=== PATIENT | female | born 1970 | race Caucasian/White ===

== ENCOUNTER 2017-08-01 07:28 | Emergency (ER) | payer BC, OTHER ==
[~2017-08-01] VITALS: Ht 162.6 cm; Wt 84.8 kg
[2017-08-01 07:37] VITALS: TEMP 36.6; Ht 162.6 cm; Wt 84.8 kg
[2017-08-01] MEDS ORDERED: ONDANSETRON INJ 2 MG/ML 2 ML VIAL IV STA (07:49)
[2017-08-01] MEDS ORDERED: SODIUM CHLORIDE 0.9% 1000ML 1,000 ML IV STA (07:49)
[2017-08-01 08:06] LABS: BASO % 0.5 %; BASO ABS # 0.02 K/uL (0-0.2); EOS % 2.7 %; EOS ABS # 0.12 K/uL (0-0.5); HEMATOCRIT 41.8 % (37-47); HEMOGLOBIN 14.5 g/dL (12.0-16.0); IG# 0.01 K/uL (0.00-0.02); LYMPH % 37.4 %; LYMPH ABS # 1.64 K/uL (1.2-3.4); MEAN CELL VOLUME 88.6 fL (80-100); MEAN CORPUSCULAR HEMOGLOBIN 30.7 pg (25-34); MEAN CORPUSCULAR HGB CONC 34.7 g/dl (32-36); MEAN PLATELET VOLUME 9.8 fL (7.4-10.4); MONO % 6.8 %; NEUT % 52.4 %; PLATELET COUNT 230 K/uL (130-400); RED CELL DISTRIBUTION WIDTH CV 13.6 % (11.5-14.5); RED CELL DISTRIBUTION WIDTH SD 44.2 fL (36.4-46.3); WHITE BLOOD COUNT 4.39 K/uL (4.8-10.8)
[2017-08-01 08:18] LABS: PTT PATIENT 29.9 SECONDS (21.0-31.0)
[2017-08-01 08:22] LABS: ALBUMIN 4.3 gm/dl (3.4-5.0); ALT/SGPT 36 U/L (12-78); BLOOD UREA NITROGEN 17 mg/dl (7-18); CALCIUM 9.3 mg/dl (8.5-10.1); CARBON DIOXIDE 26 mmol/L (21-32); CREATININE 0.96 mg/dl (0.60-1.20); GLUCOSE 86 mg/dl (70-99); LIPASE 142 U/L (73-393); POTASSIUM 3.8 mmol/L (3.5-5.1); SODIUM 140 mmol/L (136-145)
[2017-08-01 08:27] LABS: ALKALINE PHOSPHATASE 75 U/L (45-117); AST/SGOT 17 U/L (15-37); TOTAL PROTEIN 8.1 gm/dl (6.4-8.2)
[2017-08-01] MEDS ORDERED: MELO7.5T5 PO (08:31)
[2017-08-01] MEDS ORDERED: OMEP20TA PO (08:32)
--- NOTE | 2017-08-01 09:37 | DIAGNOSTIC IMAGING REPORT ---
ABDOMINAL ULTRASOUND, RIGHT UPPER QUADRANT HISTORY: RUQ/right FLANK PAIN/GI. COMPARISON: None. FINDINGS: Pancreas: The pancreatic tail is obscured by overlying bowel gas. The remaining portions of the pancreas are within normal limits. Liver: The liver is echogenic consistent with fatty change. Mildly enlarged measuring 19 cm in length. Gallbladder: No gallbladder wall thickening. No gallstones. CBD: 4 mm. Right kidney: No hydronephrosis. Right adrenal gland nodule which measures 2.2 x 2.0 x 1.6 cm. IMPRESSION: 1. Mild hepatomegaly demonstrating fatty change. 2. Normal gallbladder. No gallstones. 3. A 2.2 cm indeterminate right adrenal gland nodule. Electronically signed by: Ryan Rangel M.D. 08/01/2017 9:35 AM Dictated Date/Time: 08/01/2017 9:33 AM
[2017-08-01 10:20] VITALS: BP 121/84; PULSE 65; O2SAT 98
--- NOTE | 2017-08-01 10:31 | EMERGENCY ROOM VISIT NOTE ---
History First contact with patient: 07:31 Chief Complaint: ABDOMINAL PAIN Stated Complaint: RIGHT SIDE ABDOMINAL PAIN Nursing Triage Summary: Pt presents with RUQ pain x 2 mos, worse after eating. Nausea, diarrhea. States saw PCP on Mon, was to have testing for gall bladder or ulcer next week. Unable to tolerate the pain. History of Present Illness The patient is a 47 year old female who presents to the Emergency Room with complaints of a 2 month history of right upper quadrant pain, right shoulder pain and back pain. The patient reports that her pain is significantly worsened with any type of food intake. She reports nausea without vomiting. She is also had significant belching. She reports that her stools have a yellow and/or ramirez colored appearance. She has not noticed any dark stools. The patient reports that she was seen by her PCP, Dr. Gale, who ordered imaging studies. She also was provided a prescription for a proton pump inhibitor, but did not get the prescription filled yet. She was seen by her PCP 3 days ago. She denies any pain extending into the lower abdomen. She denies any urinary symptoms. The patient also denies any recent upper respiratory illnesses, including runny nose, sore throat or cough. At the current time, she rates her discomfort a 4 out of 10 on my exam. The patient reports a strong family history of gallbladder disease. Review of Systems HEENT: Denies dizziness, visual problems, hearing loss, tinnitus. Denies difficulty swallowing or oral lesions. PULMONARY: Denies cough, shortness of breath, sputum production or hemoptysis. CARDIOVASCULAR: Denies chest pain, palpitations, dyspnea on exertion, orthopnea or peripheral edema. GASTROINTESTINAL: See HPI. GENITOURINARY: Denies dysuria, frequency, urgency or nocturia. NEUROLOGIC: Denies history of epilepsy, CVA, TIA or chronic headaches. MUSCULOSKELETAL: Denies history of joint tenderness/swelling. SKIN: Denies rashes or lesions. PSYCHIATRIC: Denies history of depression or mental illness. ENDOCRINE: Denies history of diabetes or thyroid disorders. Past Medical/Surgical History Medical Problems: (1) No significant past medical history Surgical Problems: (1) No history of previous surgery Family History FH: gallbladder disease FH: hypertension FH: kidney disease Social History Smoking Status: Never Smoker Alcohol Use: none Marital Status: single, in relationship Housing Status: lives with significant other Occupation Status: employed Current/Historical Medications Scheduled Meloxicam (Mobic), 15 MG PO DAILY Omeprazole (Omeprazole), 40 MG PO DAILY Physical Exam Vital Signs Date Time Temp Pulse Resp B/P (MAP) Pulse Ox O2 Delivery O2 Flow Rate FiO2 08/01/17 09:30 59 18 121/77 100 Room Air 08/01/17 08:42 65 08/01/17 07:37 36.6 90 18 136/85 99 Room Air Physical Exam CONSTITUTIONAL: Healthy and well nourished. Alert and oriented X 3 with positive affect. Patient appears in mild discomfort and nausea. HEENT: Normocephalic, atraumatic. Pupils equal, round and reactive. No scleral icterus or conjunctival injection/pallor. OROPHARYNX: Mucous membranes are dry. No tonsillar hypertrophy or exudates. NECK: Full active range of motion without discomfort. No JVD or carotid bruits. RESPIRATORY: Clear to auscultation bilaterally with no wheezing, crackles, rhonchi or stridor. CARDIOVASCULAR: Regular rate and rhythm with no murmurs, rubs or gallops. GASTROINTESTINAL: Bowel sounds present in all quadrants. Patient has a positive Villanueva sign and right upper quadrant/epigastric tenderness to palpation. Negative CVA tenderness. Negative McBurney's point tenderness. No obvious hepatosplenomegaly. No abdominal rigidity, guarding or rebound. MUSCULOSKELETAL: Full range of motion of all joints without discomfort. INTEGUMENTARY: No rash or other significant dermatologic conditions noted. HEMATOLOGIC: No ecchymosis or petechiae. NEUROLOGIC: No focal neurologic deficits noted. Medical Decision & Procedures ER Provider Diagnostic Interpretation: My interpretation of an ECG shows a normal sinus rhythm of [address] elevation or other conduction abnormalities. Abdominal ultrasound does not show any evidence for, gallbladder wall thickening or dilated common bile duct. The remaining ultrasound is also normal. Radiologist report is as follows: ABDOMINAL ULTRASOUND, RIGHT UPPER QUADRANT HISTORY: RUQ/right FLANK PAIN/GI. COMPARISON: None. FINDINGS: Pancreas: The pancreatic tail is obscured by overlying bowel gas. The remaining portions of the pancreas are within normal limits. Liver: The liver is echogenic consistent with fatty change. Mildly enlarged measuring 19 cm in length. Gallbladder: No gallbladder wall thickening. No gallstones. CBD: 4 mm. Right kidney: No hydronephrosis. Right adrenal gland nodule which measures 2.2 x 2.0 x 1.6 cm. IMPRESSION: 1. Mild hepatomegaly demonstrating fatty change. 2. Normal gallbladder. No gallstones. 3. A 2.2 cm indeterminate right adrenal gland nodule. Laboratory Results 08/01/17 07:55 Red Blood Count 4.72, Mean Corpuscular Volume 88.6, Mean Corpuscular Hemoglobin 30.7, Mean Corpuscular Hemoglobin Concent 34.7, Mean Platelet Volume 9.8, Neutrophils (%) (Auto) 52.4, Lymphocytes (%) (Auto) 37.4, Monocytes (%) (Auto) 6.8, Eosinophils (%) (Auto) 2.7, Basophils (%) (Auto) 0.5, Neutrophils # (Auto) 2.30, Lymphocytes # (Auto) 1.64, Monocytes # (Auto) 0.30, Eosinophils # (Auto) 0.12, Basophils # (Auto) 0.02 08/01/17 07:55 Test 08/01/17 07:55 08/01/17 08:00 White Blood Count 4.39 K/uL (4.8-10.8) Red Blood Count 4.72 M/uL (4.2-5.4) Hemoglobin 14.5 g/dL (12.0-16.0) Hematocrit 41.8 % (37-47) Mean Corpuscular Volume 88.6 fL (80-100) Mean Corpuscular Hemoglobin 30.7 pg (25-34) Mean Corpuscular Hemoglobin Concent 34.7 g/dl (32-36) Platelet Count 230 K/uL (130-400) Mean Platelet Volume 9.8 fL (7.4-10.4) Neutrophils (%) (Auto) 52.4 % Lymphocytes (%) (Auto) 37.4 % Monocytes (%) (Auto) 6.8 % Eosinophils (%) (Auto) 2.7 % Basophils (%) (Auto) 0.5 % Neutrophils # (Auto) 2.30 K/uL (1.4-6.5) Lymphocytes # (Auto) 1.64 K/uL (1.2-3.4) Monocytes # (Auto) 0.30 K/uL (0.11-0.59) Eosinophils # (Auto) 0.12 K/uL (0-0.5) Basophils # (Auto) 0.02 K/uL (0-0.2) RDW Standard Deviation 44.2 fL (36.4-46.3) RDW Coefficient of Variation 13.6 % (11.5-14.5) Immature Granulocyte % (Auto) 0.2 % Immature Granulocyte # (Auto) 0.01 K/uL (0.00-0.02) Prothrombin Time 10.1 SECONDS (9.0-12.0) Prothromb Time International Ratio 1.0 (0.9-1.1) Activated Partial Thromboplast Time 29.9 SECONDS (21.0-31.0) Partial Thromboplastin Ratio 1.2 D-Dimer < 190 ug/L FEU (0-500) Anion Gap 7.0 mmol/L (3-11) Est Creatinine Clear Calc Drug Dose 77.2 ml/min Estimated GFR () 82.2 Estimated GFR (Non- 70.9 BUN/Creatinine Ratio 18.1 (10-20) Calcium Level 9.3 mg/dl (8.5-10.1) Total Bilirubin 0.5 mg/dl (0.2-1) Direct Bilirubin 0.1 mg/dl (0-0.2) Aspartate Amino Transf (AST/SGOT) 17 U/L (15-37) Alanine Aminotransferase (ALT/SGPT) 36 U/L (12-78) Alkaline Phosphatase 75 U/L (45-117) Total Creatine Kinase 79 U/L (26-192) Troponin I < 0.015 ng/ml (0-0.045) Total Protein 8.1 gm/dl (6.4-8.2) Albumin 4.3 gm/dl (3.4-5.0) Lipase 142 U/L (73-393) Urine Color YELLOW Urine Appearance CLEAR (CLEAR) Urine pH 5.5 (4.5-7.5) Urine Specific [place] 1.017 (1.000-1.030) Urine Protein NEG (NEG) Urine Glucose (UA) NEG (NEG) Urine Ketones NEG (NEG) Urine Occult Blood NEG (NEG) Urine Nitrite NEG (NEG) Urine Bilirubin NEG (NEG) Urine Urobilinogen NEG (NEG) Urine Leukocyte Esterase NEG (NEG) The above labs were reviewed and were grossly normal. Urinalysis was also normal. Medications Administered Medications (Trade) Dose Ordered Sig/Oralia Route Start Time Stop Time Status Last Admin Dose Admin Sodium Chloride 1,000 ml @ 999 mls/hr Q1H1M STAT IV 08/01/17 07:49 08/01/17 08:49 DC 08/01/17 08:16 999 MLS/HR Ondansetron HCl (Zofran Inj) 4 mg NOW STAT IV 08/01/17 07:49 08/01/17 07:52 DC 08/01/17 08:16 4 MG Procedure 1. IV hydration: The patient was administered a normal saline 1 L bolus 2. IV medications: Zofran 4 mg IVP ED Course Patient history and physical exam were performed. Nurse's notes were reviewed. Vital signs were reviewed and were normal. IV access was established, and labs were drawn. Patient was hydrated with normal saline. She was also administered IV Zofran for nausea. She refused any parenteral analgesics on initial exam. Review of labs did not show any acute findings. LFTs, alkaline phosphatase and lipase are normal. Abdominal ultrasound was also normal, showing no evidence for gallstones, gallbladder wall thickening or common bile duct dilatation. I explained to the patient that although her laboratory and imaging studies are normal, this certainly does not rule out biliary colic or dysfunctional gallbladder. She was advised that she would likely benefit from a HIDA scan. The patient does not know if she needs a referral to see a specialist. The patient was provided contact information for Dr. Mina, [facility] gastroenterology who is on-call today. She may also follow-up with her PCP for this referral. She was instructed on a bland diet, avoiding NSAIDs , alcohol, spicy/fatty/high-protein foods. She may return to emergency department as needed for any progressively worsening symptoms. The patient was happy with plan of care, and voiced understanding of all discharge instructions. Case was also discussed with Dr. Baron, ED attending physician , who agrees with workup and outpatient plan of care. Medical Decision Patient presents with complaint of right upper quadrant abdominal pain that radiates to the shoulder and back. Her pain is postprandial, suspicious for biliary colic. Laboratory and imaging studies today are not consistent with cholecystitis. Additional laboratory studies are not suggestive of pancreatitis or hepatitis. I do feel that outpatient workup is warranted at this point. Medication Reconcilliation Current Medication List: was personally reviewed by me Blood Pressure Screening Patient's blood pressure: Normal blood pressure Impression Primary Impression: RUQ abdominal pain Departure Information Referrals Toni Gale D.O. (PCP) Patient Instructions My [facility]
== END 2017-08-01 10:20 | disposition home or self-care (01) ==
LOC: C.EDB 07:29 → C.EDA 10:20
DX: R10.11 Right upper quadrant pain (principal); R11.0 Nausea; Z83.79 Family history of other diseases of the digestive system; Z82.49 Family history of ischemic heart disease and other diseases of the circulatory system; Z84.1 Family history of disorders of kidney and ureter

== ENCOUNTER 2024-04-25 10:23 | Inpatient (IN) ==
--- OUTSIDE RECORDS SUMMARY | 2024-04-25 10:27 | External Medical Summary | Summary of Care ---
Author Name Unknown Organization [facility] Address [address] [place] [address] Phone [phone] Care Team Providers Care Filtration Plant Operator Name Role Phone Sheila Nieto Primary Care Provider Reason for Visit * Reason Onset Date Comments Surgery Procedure Cancelled 01/23/2024 Surgery 01/23/2024 Encounter Details Date Type Department Care Team (Late st Contact Info) Description 01/23/2024 Telephone General Surgery, [facility] [address] [facility] [place] [address] Services, Scheduling [address] [place] [address] Surgery Procedure Cancelled; Surgery Allergies No known active allergiesdocumented as of this encounter (statuses as of 03/04/2024) Medications Medication Sig Dispensed Refills Start Date End Date Status omeprazole (PRILOSEC) 40 MG CPDR Take 1 Capsule by mouth in the morning. Active Allopurinol 50 MG PO TABS Take by mouth daily. Active Fiber 625 MG Oral Tablet Take by mouth 1 Tablet daily . 08/29/2020 Active Probiotic Formula 1-250 BILLION-MG Oral Capsule Take by mouth 1 Tablet daily . 08/29/2020 Active Lisinopril 10 MG Oral Tablet (Prinivil) Take 2 Tablets by mouth in the morning. 07/18/2021 Active metFORMIN HCl 1000 MG Oral Tablet (Glucophage) Take 1 Tablet by mouth daily with breakfast. Active Praluent 75 MG/ML Subcutaneous Solution Auto-injector (Alirocumab) Inject under the skin 75 mg/mL every 14 days . Active Dexcom G6 Sensor USE DIRECTED FOR CONTINUOUS GLUCOSE MONITORING - E11.65 // CHANGE EVERY 10 DAYS 01/15/2022 Active Dexcom G6 Transmitter USE ONE TRANSMITTER EVERY 3 MONTHS FOR BLOOD GLUCOSE MONITORING E11.65 01/26/2022 Active DULoxetine HCl 60 MG Oral Capsule Delayed Release Particles (Cymbalta) Take 1 Capsule by mouth in the morning. 02/03/2022 Active [facility] Senna Plus 8.6-50 MG Oral Tablet TAKE 1 - 2 TAB ORALLY TWICE A DAY NEEDED FOR CONSTIPATION OTC 01/25/2022 Active Ubrelvy 50 MG Oral Tablet TAKE 1 TABLET AT ONSET OF MIGRAINE, MAY REPEAT IN 2 HOURS IF NEEDED 01/19/2022 Active Celecoxib 200 MG Oral Capsule (CeleBREX) TAKE 1 CAPSULE BY MOUTH ONCE A DAY FOR ARTHRITIS PAIN 06/19/2022 Active Hyoscyamine Sulfate 0.125 MG Oral Tablet (Levsin) TAKE 1 TABLET BY MOUTH IN THE MORNING AT AT NOON IN THE EVENING AND BEFORE BEDTIME 270 Tablet 2 05/24/2023 Active Nortriptyline HCl 25 MG Oral Capsule (Pamelor) Take 1 Capsule by mouth at bedtime. 90 Capsule 3 06/24/2023 Active Empagliflozin 25 MG Oral Tablet (Jardiance) Take 1 Tablet by mouth in the morning. Active linaCLOtide 145 MCG Oral Capsule (Linzess) Take 1 Capsule by mouth daily before breakfast. 90 Capsule 3 10/10/2023 Active documented as of this encounter (statuses as of 03/04/2024) Active Problems Problem Noted Date Diagnosed Date Bilateral inguinal hernia without obstruction or gangrene 01/15/2024 Trigger finger of left thumb 01/23/2023 Trigger finger of right thumb 01/23/2023 documented as of this encounter (statuses as of 03/04/2024) Immunizations Name Administration Dates Next Due PPD 12/29/2021 Seasonal Influenza, PF, 6 M & above, IM , (FluLaval or Fluzone) 02/25/2020 documented as of this encounter Social History Tobacco Use Types Packs/Day Years Used Date Smoking Tobacco: Never Smokeless Tobacco: Never Alcohol Use Standard Drinks/Week Comments Not Currently 0 (1 standard drink = 0.6 oz pure alcohol) Quit when she became a type 2 diabetic Utilities Answer Date Recorded Do you have trouble paying y our heating, water, or electric bill? (Adult - for ages 18 years and over) Not on file 11/12/2023 Is your family able to pay t he heat, water, or electric bill? (Household - for ages 0-17 years) Not on file 11/12/2023 Does your family have access to good internet? (Household - for ages 0-17 years) Not on file 11/12/2023 Social Connections Answer Date Recorded How often do you feel lonely or isolated from those around you? (Adult - for ages 18 years and over) Not on file 11/12/2023 Sex and Gender Information Value Date Recorded Sex Assigned at Not on file Gender Identity Not on file Sexual Orientation Not on file Job Start Date Occupation Industry Not on file Not on file Not on file documented as of this encounter Miscellaneous Notes * Telephone Encounter - Portia Cleary OSA - 03/04/2024 2:56 PM EDT Pt called in stating she is ready to have procedure rescheduled. Please call and assist. * Telephone Encounter - Paola Solomon OSA - 01/23/2024 9:30 AM EDT Surgery is cancelled. * Telephone Encounter - Hortencia Taylor OSA - 01/23/2024 9:24 AM EDT Pt is to have surgery with Dr. Diamond on 02/06. Pt is unable to get the time off of work and needsto cancel this for now. She will call back when able to take time off. documented in this encounter Plan of Treatment Scheduled Procedures Name Priority Associated Diagnoses Date/Ti me COLONOSCOPY FLEXIBLE PROXIMA L DIAGNOSTIC Recall Encounter for screening colonoscopy Health Maintenance Due Date Last Done Comments Pneumococcal Vaccine: Pediatrics (0 to 5 Years) and At-Risk Patients (6 to 64 Years) (1 of 2 - PCV) 1977 Depression Screening 1983 HIV Screening 1986 Hepatitis C Screening 1989 DTap/Tdap Vaccines (1 - Tdap) 1990 Hepatitis B Vaccine (1 of 3 - 19+ 3-dose series) 1990 Mammogram 2011 Fecal Occult Blood Test 01/04/2016 Sigmoidoscopy 01/04/2016 Zoster Vaccines (1 of 2) 2021 COVID-19 Vaccine (1 - season) 2024 Influenza Vaccine (FLU shot) (#1) 2024 02/25/2020 Cologuard 03/07/2026 03/07/2023, 02/26/2023 Diabetes Screening 01/14/2027 01/15/2024, 0 12/31/2022, 12/31/2022, Additional history exists Lipid Panel 01/01/2028 12/31/2022, 05/0 01/2022, 10/02/2021, Additional history exists Colonoscopy 01/02/2029 01/02/2019, 01/02/2019 Colorectal Cancer Screening 01/02/2029 HPV (Gardasil) Vaccine Aged Out No lo nger eligible based on patient's age to complete this topic MENINGOCOCCAL (MENACTRA/MENVEO) Aged Out No longer eligible based on patient's age to complete this topic documented as of this encounter Medical Devices Not on filedocumented as of this encounter Advance Directives * Full Code (Latest Code Status on File) Date Activated Date Inactivated Comments 10/20/2019 9:46 AM 10/20/2019 2:57 PM This order r eflects the patients wishes and were consensually agreed upon. Care Teams Filtration Plant Operator Relationship Specialty Start Date End Date Sheila Nieto CRNP [address] [facility] [address] [place] [address] PCP - General Nurse Practitioner 10/16/21 documented as of this encounter
--- OUTSIDE RECORDS SUMMARY | 2024-04-25 10:27 | External Medical Summary | Summary of Care ---
Author Name Unknown Organization [facility] Address [address] [place] [address] Phone [phone] Care Team Providers Care Swager Operator Name Role Phone Sheila Nieto Primary Care Provider Reason for Visit * Reason Onset Date Comments Surgery Procedure Cancelled 01/23/2024 Surgery 01/23/2024 Encounter Details Date Type Department Care Team (Late st Contact Info) Description 01/23/2024 Telephone General Surgery, [facility] [address] [facility] [place] [address] Services, Scheduling [address] [place] [address] Surgery Procedure Cancelled; Surgery Allergies No known [...] and were consensually agreed upon. Care Teams Swager Operator Relationship Specialty Start Date End Date Sheila Nieto CRNP [address] [facility] [address] [place] [address] PCP - General Nurse Practitioner 10/16/21 documented as of this encounter
--- OUTSIDE RECORDS SUMMARY | 2024-04-25 10:27 | External Medical Summary | Summary of Care ---
Author Name Unknown Organization [facility] Address [address] [place] [address] Phone [phone] Care Team Providers Care Retail Banker Name Role Phone Sheila Nieto Primary Care Provider Reason for Visit * Reason Onset Date Comments Surgery Procedure Cancelled 01/23/2024 Surgery 01/23/2024 Encounter Details Date Type Department Care Team (Late st Contact Info) Description 01/23/2024 Telephone General Surgery, [facility] [address] [facility] [place] [address] Services, Scheduling [address] [place] [address] Surgery Procedure Cancelled; Surgery Allergies No known active allergiesdocumented as of this encounter (statuses as of 03/05/2024) Medications Medication Sig Dispensed Refills Start Date [...] as of this encounter (statuses as of 03/05/2024) Active Problems Problem Noted Date Diagnosed Date Bilateral inguinal hernia without obstruction or gangrene 01/15/2024 Trigger finger of left thumb 01/23/2023 Trigger finger of right thumb 01/23/2023 documented as of this encounter (statuses as of 03/05/2024) Immunizations Name Administration Dates Next Due PPD [...] encounter Miscellaneous Notes * Telephone Encounter - Paola Solomon OSA - 03/05/2024 9:16 AM EDT Lmom to return call * Telephone Encounter - Portia Cleary OSA [...] and were consensually agreed upon. Care Teams Retail Banker Relationship Specialty Start Date End Date Sheila Nieto CRNP [address] [facility] [address] [place] [address] PCP - General Nurse Practitioner 10/16/21 documented as of this encounter
--- OUTSIDE RECORDS SUMMARY | 2024-04-25 10:27 | External Medical Summary | Summary of Care ---
Author Name Unknown Organization [facility] Address [address] [place] [address] Phone [phone] Care Team Providers Care Guide Tour Name Role Phone Sheila Nieto Primary Care Provider Reason for Visit * Reason Onset Date Comments Surgery Procedure Cancelled 01/23/2024 Surgery 01/23/2024 Encounter Details Date Type Department Care Team (Late st Contact Info) Description 01/23/2024 Telephone General [facility], [facility] [address] [facility], Scheduling [address] [place] [address] Surgery Procedure Cancelled; Surgery Allergies No known active allergiesdocumented as of this encounter (statuses as of 04/10/2024) Medications omeprazole (PRILOSEC) 40 MG CPDR Take 1 Capsule by mouth in the morning. Active Allopurinol 50 MG PO TABS Take by mouth daily. Active Fiber 625 MG Oral Tablet Take by mouth 1 Tablet daily . 1 Active Probiotic Formula 1-250 BILLION-MG Oral Capsule Take by mouth 1 Tablet daily . 1 Active Lisinopril 10 MG Oral Tablet (Prinivil) Take 2 Tablets by mouth in the morning. 2 Active metFORMIN HCl 1000 MG Oral Tablet (Glucophage) Take 1 Tablet by mouth daily with breakfast. Active Praluent 75 MG/ML Subcutaneous Solution Auto-injector (Alirocumab) Inject under the skin 75 mg/mL every 14 days . Active Dexcom G6 Sensor USE DIRECTED FOR CONTINUOUS GLUCOSE MONITORING - E11.65 // CHANGE EVERY 10 DAYS 2 Active Dexcom G6 Transmitter USE ONE TRANSMITTER EVERY 3 MONTHS FOR BLOOD GLUCOSE MONITORING E11.65 2 Active DULoxetine HCl 60 MG Oral Capsule Delayed Release Particles (Cymbalta) Take 1 Capsule by mouth in the morning. 2 Active [facility] Senna Plus 8.6-50 MG Oral Tablet TAKE 1 - 2 TAB ORALLY TWICE A DAY NEEDED FOR CONSTIPATION OTC 2 Active Ubrelvy 50 MG Oral Tablet TAKE 1 TABLET AT ONSET OF MIGRAINE, MAY REPEAT IN 2 HOURS IF NEEDED 2 Active Celecoxib 200 MG Oral Capsule (CeleBREX) TAKE 1 CAPSULE BY MOUTH ONCE A DAY FOR ARTHRITIS PAIN 3 Active Hyoscyamine Sulfate 0.125 MG Oral Tablet (Levsin) TAKE 1 TABLET BY MOUTH IN THE MORNING AT AT NOON IN THE EVENING AND BEFORE BEDTIME 270 Tablet 2 3 Active Nortriptyline HCl 25 MG Oral Capsule (Pamelor) Take 1 Capsule by mouth at bedtime. 90 Capsule 3 4 Active Empagliflozin 25 MG Oral Tablet (Jardiance) Take 1 Tablet by mouth in the morning. Active linaCLOtide 145 MCG Oral Capsule (Linzess) Take 1 Capsule by mouth daily before breakfast. 90 Capsule 3 4 Active documented as of this encounter (statuses as of 04/10/2024) Active Problems Problem Noted Date Diagnosed Date Bilateral inguinal hernia without obstruction or gangrene 01/15/2024 Trigger finger of left thumb 01/23/2023 Trigger finger of right thumb 01/23/2023 documented as of this encounter (statuses as of 04/10/2024) Immunizations Name Administration Dates Next Due PPD [...] years and over) Not on file 11/12/2023 Comments No Sex and Gender Information Value Date Recorded Sex Assigned at Not on file Legal Sex Female 9:19 AM EST Gender Identity Not on file Sexual Orientation Not on file documented as of this encounter Miscellaneous Notes * Telephone Encounter - Paola Solomon OSA - 04/10/2024 9:48 AM EST Scheduled to come in the office on 04/13/24. * Telephone Encounter - Hortencia Tyalor OSA - 04/10/2024 9:03 AM EST Pt calling in, she is ready to get her surgery with Dr. Diamond rescheduled. Please contact pt * Telephone Encounter - Paola Solomon OSA [...] documented in this encounter Plan of Treatment Upcoming Encounters Date Type Department Care Team (Late st Contact Info) Description 04/13/2024 1:15 PM EST Office Visit General Surgery, [facility] [address] [place] [address] Jonathan Diamond MD [address] [place] [address] Scheduled Procedures Name Priority Associated Diagnoses Date/Ti [...] Vaccines (1 of 2) 2021 COVID-19 Vaccine ( - season) 2024 Influenza Vaccine (FLU shot) [...] and were consensually agreed upon. Care Teams Guide Tour Relationship Specialty Start Date End Date Sheila Nieto CRNP [address] [place] [address] PCP - General Nurse Practitioner 10/16/21 documented as of this encounter
--- OUTSIDE RECORDS SUMMARY | 2024-04-25 10:27 | External Medical Summary | Summary of Care ---
Author Name Unknown Organization [facility] Address [address] [place] [address] Phone [phone] Care Team Providers Care Forming Machine Tender Name Role Phone Sheila Nieto Primary Care Provider Reason for Visit * Reason Onset Date Comments Surgery Procedure Cancelled 01/23/2024 Encounter Details Date Type Department Care Team (Late st Contact Info) Description 01/23/2024 Telephone General [facility], [facility] [address] [facility], Scheduling [address] [place] [address] Surgery Procedure Cancelled Allergies No known active allergiesdocumented as of this encounter (statuses as of 01/23/2024) Medications Medication Sig Dispensed Refills Start Date [...] as of this encounter (statuses as of 01/23/2024) Active Problems Problem Noted Date Diagnosed Date Bilateral inguinal hernia without obstruction or gangrene 01/15/2024 Trigger finger of left thumb 01/23/2023 Trigger finger of right thumb 01/23/2023 documented as of this encounter (statuses as of 01/23/2024) Immunizations Name Administration Dates Next Due PPD [...] Upcoming Encounters Date Type Department Care Team (Latest Contact Info) Description 02/07/2024 10:02 AM EDT Hospital Encounter [facility], Operating Room [facility] [address] [place] [address] Jonathan Diamond MD [address] [place] [address] 02/07/2024 10:02 AM EDT - 02/07/2024 11:15 AM EDT Surgery OR [facility], Operating Room [facility] [address] [place] [address] Jonathan Diamond MD [address] [place] [address] LAPAROSCOPIC REPAIR INGUINAL HERNIA INITIAL Scheduled Procedures Name Priority Associated Diagnoses Date/Ti me LAPAROSCOPIC REPAIR INGUINAL HERNIA INITIAL Bilateral inguinal hernia without obstruction or gangrene, recurrence not specified 02/07/2024 10:02 AM EDT COLONOSCOPY FLEXIBLE PROXIMAL DIAGNOSTIC Recall Encounter for screening colonoscopy Health [...] of 2) 2021 COVID-19 Vaccine (1 - 2022- season) 2023 Influenza Vaccine (FLU shot) (#1) 2024 02/25/2020 [...] and were consensually agreed upon. Care Teams Forming Machine Tender Relationship Specialty Start Date End Date Sheila Nieto CRNP [address] [address] [place] [address] PCP - General Nurse Practitioner 10/16/21 documented as of this encounter
--- OUTSIDE RECORDS SUMMARY | 2024-04-25 10:27 | External Medical Summary | Summary of Care ---
Author Name Unknown Organization [facility] Address [address] [place] [address] Phone [phone] Care Team Providers Care Facilities Plant Engineer Name Role Phone Sheila Nieto Primary Care Provider Reason for Visit * Reason Onset Date Comments Surgery Procedure Cancelled 01/23/2024 Surgery 01/23/2024 Encounter Details Date Type Department Care Team (Late st Contact Info) Description 01/23/2024 Telephone [facility], [facility] [address] [facility] [address] [place] [address] Surgery Procedure Cancelled; Surgery Allergies No known [...] encounter Miscellaneous Notes * Telephone Encounter - Hortencia Taylor OSA - 04/10/2024 9:03 AM EST Pt [...] and were consensually agreed upon. Care Teams Facilities Plant Engineer Relationship Specialty Start Date End Date Sheila Nieto CRNP [address] [place], [place] [address] [address] PCP - General Nurse Practitioner 10/16/21 documented as of this encounter
--- OUTSIDE RECORDS SUMMARY | 2024-04-25 10:28 | External Medical Summary ---
Author Name Unknown Address Unknown Organization [facility] [address] [place] [address] Laboratory Report Ordering Provider Test Date Status YU CATHERINE 01/15/2024 10:41:50 Final Observation Date Value Abnormality Reference (Units ) Status BUN 01/15/2024 10:41:50 11 6-20 (mg/dL) Final Creatinine 01/15/2024 10:41:50 0.9 0.5-1.0 (mg/dL) Final Glomerular filtration rate/1.73 sq M.predicted [Volume Rate/Area] in Serum, Plasma or Blood by Creatinine-based formula (CKD-EPI) 01/15/2024 10:41:50 81 >=60 (mL/min) Final eGFR is calculated based on the CKD-EPI 2020 equation. Sodium 01/15/2024 10:41:50 139 135-146 (m mol/L) Final Potassium 01/15/2024 10:41:50 4.8 3.5-5.1 (m mol/L) Final Cl 01/15/2024 10:41:50 105 98-107 (mm ol/L) Final CO2 01/15/2024 10:41:50 21 Below low normal 22- 32 (mmol/L) Final Anion gap 01/15/2024 10:41:50 13 7-15 (mmol /L) Final Glucose 01/15/2024 10:41:50 100 70-120 (mg /dL) Final Albumin 01/15/2024 10:41:50 4.7 3.8-5.0 (g /dL) Final AST (Aspartate aminotransferase) 01/15/2024 10:41:50 33 10-35 (U/L) Fin al Alk Phos 01/15/2024 10:41:50 90 35-130 (U/ L) Final Bilirubin, Total 01/15/2024 10:41:50 0.2 <=1 .2 (mg/dL) Final Calcium 01/15/2024 10:41:50 10.2 8.4-10.2 ( mg/dL) Final Protein 01/15/2024 10:41:50 7.5 6.0-8.3 (g /dL) Final ALT (Alanine aminotransferase) 01/15/2024 10:41:50 48 Above high normal 10-35 (U/L) Final Performing Location [facility] [facility] [address]
--- OUTSIDE RECORDS SUMMARY | 2024-04-25 10:28 | External Medical Summary | Summary of Care ---
Author Name Unknown Organization [facility] Address [address] [facility] [place] [address] Phone [phone] Care Team Providers Care Photographer'S Assistant Name Role Phone Sheila Nieto Primary Care Provider Reason for Visit * Reason Comments NEW PATIENT Encounter Details Date Type Department Care Team (Late st Contact Info) Description 01/15/2024 10:00 AM EDT Office Visit General Surgery, [facility] [address] [facility] [place] [address] Jonathan Diamond MD [address] [place] [address] Pre-op testing*; Bilateral inguinal hernia without obstruction or gangrene, recurrence not specified Allergies No known active allergiesdocumented as of this encounter (statuses as of 01/15/2024) Medications Medication Sig Dispensed Refills Start Date [...] as of this encounter (statuses as of 01/15/2024) Active Problems Problem Noted Date Diagnosed Date Bilateral inguinal hernia without obstruction or gangrene 01/15/2024 Trigger finger of left thumb 01/23/2023 Trigger finger of right thumb 01/23/2023 documented as of this encounter (statuses as of 01/15/2024) Immunizations Name Administration Dates Next Due PPD [...] on file documented as of this encounter Last Filed Vital Signs Vital Sign Reading Time Taken Comments Blood Pressure 119/76 01/15/2024 9:41 AM EDT Pulse 72 01/15/2024 9:41 AM EDT Temperature 36.2 C (97.2 F) 01/15/2024 9:41 AM ED T Respiratory Rate - - Oxygen Saturation - - Inhaled Oxygen Concentration - - Weight 90.1 kg (198 lb 9.6 oz) 01/15/2024 9:41 A M EDT Height - - Body Mass Index 32.05 06/24/2023 3:05 PM EST documented in this encounter Progress Notes * Jonathan Diamond MD - 01/15/2024 9:48 AM EDT CC- bilateral inguinal hernias Chief Complaint Patient presents with NEW PATIENT REF: SELF NO STREET ADDRESS AVAILABLE HPI.: Fidelina Deluca is a 54 year old female seen in consultation for a bilateral inguinal hernia. They have had moderate symptoms present for weeks duration. Their symptomsdid start at work. The pain is sharp and intermittent. Their lumps are reducible. She has no Sxs of chronic constipation,chronic cough,difficulty urinating. Past Medical History Past Medical History: Diagnosis Date Arthritis Diverticulosis Migraine Past Surgical History Past Surgical History: Procedure Laterality Date COLONOSCOPY, DIAGNOSTIC (RECTUM) 01/02/2019 diverticulosis, repeat age 51/COLONOSCOPY FLEXIBLE PROXIMAL DIAGNOSTIC performed by Diane Varela MD at [facility] EGD, FLEXIBLE, DIAGNOSTIC 10/28/2017 mild stomach irritation, hiatal hernia/ESOPHAGOGASTRODUODENOSCOPY (EGD), FLEXIBLE, TRANSORAL, DIAGNOSTIC performed by Diane Varela MD at [facility] EGD, FLEXIBLE, DIAGNOSTIC 01/02/2019 normal bx/ESOPHAGOGASTRODUODENOSCOPY (EGD), FLEXIBLE, TRANSORAL, DIAGNOSTIC performed by Diane Varela MD at [facility] LAPAROSCOPY; CHOLECYSTECTOMY N/A 10/20/2019 LAPAROSCOPIC CHOLECYSTECTOMY performed by Reddy Alexander MD at [facility] MISCELLANEOUS ORDER ([facility] ONLY) Right knee surgery REMOVAL OF OVARY/OVIDUCT(S) with hysterectomy TENDON SHEATH INCISION, FINGER Left 02/06/2023 TRIGGER FINGER RELEASE performed by Gregory Jose MD at [facility] TOTAL HYSTERECTOMY age 24 Medications: Current Outpatient Medications Medication Sig Dispense Refill omeprazole (PRILOSEC) 40 MG CPDR Take 1 Capsule by mouth in the morning. Allopurinol 50 MG PO TABS Take by mouth daily. Fiber 625 MG Oral Tablet Take by mouth 1 Tablet daily . Probiotic Formula 1-250 BILLION-MG Oral Capsule Take by mouth 1 Tablet daily . Lisinopril 10 MG Oral Tablet (Prinivil) Take 2 Tablets by mouth in the morning. metFORMIN HCl 1000 MG Oral Tablet (Glucophage) Take 1 Tablet by mouth daily with breakfast. Praluent 75 MG/ML Subcutaneous Solution Auto-injector (Alirocumab) Inject under the skin 75 mg/mL every 14 days . (Patient not taking: Reported on 11/28/2022) Dexcom G6 Sensor USE DIRECTED FOR CONTINUOUS GLUCOSE MONITORING - E11.65 // CHANGE EVERY 10 DAYS Dexcom G6 Transmitter USE ONE TRANSMITTER EVERY 3 MONTHS FOR BLOOD GLUCOSE MONITORING E11.65 DULoxetine HCl 60 MG Oral Capsule Delayed Release Particles (Cymbalta) Take 1 Capsule by mouth in the morning. [facility] Senna Plus 8.6-50 MG Oral Tablet TAKE 1 - 2 TAB ORALLY TWICE A DAY NEEDED FOR CONSTIPATION OTC Ubrelvy 50 MG Oral Tablet TAKE 1 TABLET AT ONSET OF MIGRAINE, MAY REPEAT IN 2 HOURS IF NEEDED Celecoxib 200 MG Oral Capsule (CeleBREX) TAKE 1 CAPSULE BY MOUTH ONCE A DAY FOR ARTHRITIS PAIN Hyoscyamine Sulfate 0.125 MG Oral Tablet (Levsin) TAKE 1 TABLET BY MOUTH IN THE MORNING AT AT NOON IN THE EVENING AND BEFORE BEDTIME 270 Tablet 2 Nortriptyline HCl 25 MG Oral Capsule (Pamelor) Take 1 Capsule by mouth at bedtime. 90 Capsule 3 Empagliflozin 25 MG Oral Tablet (Jardiance) Take 1 Tablet by mouth in the morning. linaCLOtide 145 MCG Oral Capsule (Linzess) Take 1 Capsule by mouth daily before breakfast. 90 Capsule 3 No current facility-administered medications for this visit. Allergies: Allergies as of 01/15/2024 (No Known Allergies) Family History Family History Problem Relation Name Age of Onset Gastro-intestinal disorder Father gallbladder disease Gastro-intestinal disorder Sister gallbladder disease Social History Social History Socioeconomic History Marital status: Spouse name: Not on file Number of children: Not on file Years of education: Not on file Highest education level: Not on file Occupational History Not on file Tobacco Use Smoking status: Never Smokeless tobacco: Never Vaping Use Vaping status: Never Used Substance and Sexual Activity Alcohol use: Not Currently Comment: Quit when she became a type 2 diabetic Drug use: Never Sexual activity: Not on file Other Topics Concern Not on file Social History Narrative Not on file Social Determinants of Health Financial Resource Strain: Not on file Food Insecurity: Not on file Transportation Needs: Not on file Social Connections: Unknown (11/12/2023) Social Connections How often do you feel lonely or isolated from those around you? (Adult - for ages 18 years and over): Not on file Housing Stability: Not on file ROS: GEN: no weight loss, fever, fatigue HEENT: no changes in vision or hearing, no sinus problems, no sore throat, no hoarseness RESPIRATORY: no cough, wheezing, SOB or change in breathing CARDIOVASCULAR: no exertional chest pain, dyspnea, palpitations GI: no melena or hemetemesis, no change in bowel habits, no nausea or vomiting : no dysuria, hematuria, frequency MUSCULOSKELETAL: no change in joint pains, no new arthritis PSYCHIATRIC: no significant anxiety or depression, unchanged sleep pattern HEME: no bleeding tendency, no clotting tendency NEURO: no significant headache, no seizures , no tremors SKIN: no new rashes, no itching Physical Exam: Blood pressure 119/76, pulse 72, temperature 36.2 C (97.2 F), temperature source Temporal Artery, weight 90.1 kg (198 lb 9.6 oz). Constitutional: alert, healthy, well nourished Head: normocephalic, atraumatic Eyes: conjunctiva non-injected, sclera white Ears: pinna normal shape and color Nose: no purulent discharge Mouth: lips, mucosa, and tongue normal Neck: supple, no adenopathy Lungs: clear to auscultation, breath sounds are equal and symmetric Heart: regular rate & rhythm and no murmur, gallops or rubs Abdomen: soft, non-tender, normal bowel sounds, no abnormal masses, no hernias Back: normal curvature, normal ROM, no CVA tenderness Extremities: no joint deformities, effusion, or inflammation, no edema, no skin discoloration Neuro: alert, gait normal, motor normal Skin: no obvious rashes or significant lesions Exam: reducible bilateral inguinal hernias Imaging:CT scan with bilateral inguinal hernias IMP: Fidelina Deluca is a 54 year old female with a bilateral inguinal hernias which are currently symptomatic. For this reason, I have recommended that the patient consider a hernia repair. This could be performed in open or laparoscopic approach. We reviewed that for hernias, laparascopic surgery is useful in bilateral, recurrent hernias, when associated with umbilical hernia, or where there is a benefit seen in shorter recovery time. Risks of laparascopic surgery including a slightly higher recurrence rate, slightly higher chance of nerve injury and possibility of injury to bowel or blood vessels were also discussed. I typically recommend an open procedure for initial inguinal hernias that would be difficult laparoscopically due to previous surgeries or when recovery time is not an issue. I discussed the surgery in detail and the complications related to the surgery and the anesthesia. Risks include, but are not limited to: recurrence of the hernia, persistent pain in the groin from injury to or entrapment of groin nerves, numbness, seroma formation, bleeding, infection, a significant risk of urinary retention in males with a bilateral repair and mesh infection requiring mesh removal. Patient understands these risks. Expected same day nature of surgery and postoperative recovery period reviewed. Activity restrictions postoperatively to include no heavy lifting or high impact activity for four to six weeks reviewed. All questions were answered to the patient's satisfaction and consent was signed. We also reviewed the signs and symptoms of incarceration and the patient was instructed to go directly to the emergency room should this occur. PLAN: Laparoscopic bilateral inguinal hernia at [facility] on 02/07/2024. Jonathan Diamond MD 01/15/2024 10:04 AM documented in this encounter H&P Notes * Jonathan Diamond MD - 01/15/2024 10:07 AM EDT CC- bilateral inguinal hernias Chief Complaint Patient presents with NEW PATIENT REF: SELF NO STREET ADDRESS AVAILABLE HPI.: Fidelina Deluca is a 54 year old female seen in consultation for a bilateral inguinal hernia. They have had moderate symptoms present for weeks duration. Their symptomsdid start at work. The pain is sharp and intermittent. Their lumps are reducible. She has no Sxs of chronic constipation,chronic cough,difficulty urinating. Past Medical History Past Medical History: Diagnosis Date Arthritis Diverticulosis Migraine Past Surgical History Past Surgical History: Procedure Laterality Date COLONOSCOPY, DIAGNOSTIC (RECTUM) 01/02/2019 diverticulosis, repeat age 51/COLONOSCOPY FLEXIBLE PROXIMAL DIAGNOSTIC performed by Diane Varela MD at [facility] EGD, FLEXIBLE, DIAGNOSTIC 10/28/2017 mild stomach irritation, hiatal hernia/ESOPHAGOGASTRODUODENOSCOPY (EGD), FLEXIBLE, TRANSORAL, DIAGNOSTIC performed by Diane Varela MD at [facility] EGD, FLEXIBLE, DIAGNOSTIC 01/02/2019 normal bx/ESOPHAGOGASTRODUODENOSCOPY (EGD), FLEXIBLE, TRANSORAL, DIAGNOSTIC performed by Diane Varela MD at [facility] LAPAROSCOPY; CHOLECYSTECTOMY N/A 10/20/2019 LAPAROSCOPIC CHOLECYSTECTOMY performed by Reddy Alexander MD at [facility] MISCELLANEOUS ORDER ([facility] ONLY) Right knee surgery REMOVAL OF OVARY/OVIDUCT(S) with hysterectomy TENDON SHEATH INCISION, FINGER Left 02/06/2023 TRIGGER FINGER RELEASE performed by Gregory Jose MD at [facility] TOTAL HYSTERECTOMY age 24 Medications: Current Outpatient Medications Medication Sig Dispense Refill omeprazole (PRILOSEC) 40 MG CPDR Take 1 Capsule by mouth in the morning. Allopurinol 50 MG PO TABS Take by mouth daily. Fiber 625 MG Oral Tablet Take by mouth 1 Tablet daily . Probiotic Formula 1-250 BILLION-MG Oral Capsule Take by mouth 1 Tablet daily . Lisinopril 10 MG Oral Tablet (Prinivil) Take 2 Tablets by mouth in the morning. metFORMIN HCl 1000 MG Oral Tablet (Glucophage) Take 1 Tablet by mouth daily with breakfast. Praluent 75 MG/ML Subcutaneous Solution Auto-injector (Alirocumab) Inject under the skin 75 mg/mL every 14 days . (Patient not taking: Reported on 11/28/2022) Dexcom G6 Sensor USE DIRECTED FOR CONTINUOUS GLUCOSE MONITORING - E11.65 // CHANGE EVERY 10 DAYS Dexcom G6 Transmitter USE ONE TRANSMITTER EVERY 3 MONTHS FOR BLOOD GLUCOSE MONITORING E11.65 DULoxetine HCl 60 MG Oral Capsule Delayed Release Particles (Cymbalta) Take 1 Capsule by mouth in the morning. [facility] Senna Plus 8.6-50 MG Oral Tablet TAKE 1 - 2 TAB ORALLY TWICE A DAY NEEDED FOR CONSTIPATION OTC Ubrelvy 50 MG Oral Tablet TAKE 1 TABLET AT ONSET OF MIGRAINE, MAY REPEAT IN 2 HOURS IF NEEDED Celecoxib 200 MG Oral Capsule (CeleBREX) TAKE 1 CAPSULE BY MOUTH ONCE A DAY FOR ARTHRITIS PAIN Hyoscyamine Sulfate 0.125 MG Oral Tablet (Levsin) TAKE 1 TABLET BY MOUTH IN THE MORNING AT AT NOON IN THE EVENING AND BEFORE BEDTIME 270 Tablet 2 Nortriptyline HCl 25 MG Oral Capsule (Pamelor) Take 1 Capsule by mouth at bedtime. 90 Capsule 3 Empagliflozin 25 MG Oral Tablet (Jardiance) Take 1 Tablet by mouth in the morning. linaCLOtide 145 MCG Oral Capsule (Linzess) Take 1 Capsule by mouth daily before breakfast. 90 Capsule 3 No current facility-administered medications for this visit. Allergies: Allergies as of 01/15/2024 (No Known Allergies) Family History Family History Problem Relation Name Age of Onset Gastro-intestinal disorder Father gallbladder disease Gastro-intestinal disorder Sister gallbladder disease Social History Social History Socioeconomic History Marital status: Spouse name: Not on file Number of children: Not on file Years of education: Not on file Highest education level: Not on file Occupational History Not on file Tobacco Use Smoking status: Never Smokeless tobacco: Never Vaping Use Vaping status: Never Used Substance and Sexual Activity Alcohol use: Not Currently Comment: Quit when she became a type 2 diabetic Drug use: Never Sexual activity: Not on file Other Topics Concern Not on file Social History Narrative Not on file Social Determinants of Health Financial Resource Strain: Not on file Food Insecurity: Not on file Transportation Needs: Not on file Social Connections: Unknown (11/12/2023) Social Connections How often do you feel lonely or isolated from those around you? (Adult - for ages 18 years and over): Not on file Housing Stability: Not on file ROS: GEN: no weight loss, fever, fatigue HEENT: no changes in vision or hearing, no sinus problems, no sore throat, no hoarseness RESPIRATORY: no cough, wheezing, SOB or change in breathing CARDIOVASCULAR: no exertional chest pain, dyspnea, palpitations GI: no melena or hemetemesis, no change in bowel habits, no nausea or vomiting : no dysuria, hematuria, frequency MUSCULOSKELETAL: no change in joint pains, no new arthritis PSYCHIATRIC: no significant anxiety or depression, unchanged sleep pattern HEME: no bleeding tendency, no clotting tendency NEURO: no significant headache, no seizures , no tremors SKIN: no new rashes, no itching Physical Exam: Blood pressure 119/76, pulse 72, temperature 36.2 C (97.2 F), temperature source Temporal Artery, weight 90.1 kg (198 lb 9.6 oz). Constitutional: alert, healthy, well nourished Head: normocephalic, atraumatic Eyes: conjunctiva non-injected, sclera white Ears: pinna normal shape and color Nose: no purulent discharge Mouth: lips, mucosa, and tongue normal Neck: supple, no adenopathy Lungs: clear to auscultation, breath sounds are equal and symmetric Heart: regular rate & rhythm and no murmur, gallops or rubs Abdomen: soft, non-tender, normal bowel sounds, no abnormal masses, no hernias Back: normal curvature, normal ROM, no CVA tenderness Extremities: no joint deformities, effusion, or inflammation, no edema, no skin discoloration Neuro: alert, gait normal, motor normal Skin: no obvious rashes or significant lesions Exam: reducible bilateral inguinal hernias Imaging:CT scan with bilateral inguinal hernias IMP: Fidelina Deluca is a 54 year old female with a bilateral inguinal hernias which are currently symptomatic. For this reason, I have recommended that the patient consider a hernia repair. This could be performed in open or laparoscopic approach. We reviewed that for hernias, laparascopic surgery is useful in bilateral, recurrent hernias, when associated with umbilical hernia, or where there is a benefit seen in shorter recovery time. Risks of laparascopic surgery including a slightly higher recurrence rate, slightly higher chance of nerve injury and possibility of injury to bowel or blood vessels were also discussed. I typically recommend an open procedure for initial inguinal hernias that would be difficult laparoscopically due to previous surgeries or when recovery time is not an issue. I discussed the surgery in detail and the complications related to the surgery and the anesthesia. Risks include, but are not limited to: recurrence of the hernia, persistent pain in the groin from injury to or entrapment of groin nerves, numbness, seroma formation, bleeding, infection, a significant risk of urinary retention in males with a bilateral repair and mesh infection requiring mesh removal. Patient understands these risks. Expected same day nature of surgery and postoperative recovery period reviewed. Activity restrictions postoperatively to include no heavy lifting or high impact activity for four to six weeks reviewed. All questions were answered to the patient's satisfaction and consent was signed. We also reviewed the signs and symptoms of incarceration and the patient was instructed to go directly to the emergency room should this occur. PLAN: Laparoscopic bilateral inguinal hernia at [facility] on 02/07/2024. Jonathan Diamond MD 01/15/2024 10:04 AM documented in this encounter Nursing Notes * Di Diallo LPN - 01/15/2024 9:38 AM EDT New pt referred by self for abd hernia C/o- abdominal pain, pain after eating, belching, nausea, dry heaves documented in this encounter Miscellaneous Notes * Addendum Note - Ceci Orellana LPN - 01/15/2024 10:15 AM EDTAddended by: CECI ORELLANA on: 01/15/2024 10:15 AM Modules accepted: Orders documented in this encounter Plan of Treatment Upcoming Encounters Date Type Department Care Team (Late st Contact Info) Description 02/07/2024 Hospital Encounter OR [facility], Operating Room [facility] [address] [place] [phone] Jonathan Diamond MD [address] [place] [address] Scheduled Orders Name Type Priority Associated Diagnoses Orde r Schedule CBC WITH WBC DIFFERENTIAL Lab Routine Pre-op testing Expected: 01/15/2024, Expires: 01/14/2025 COMPREHENSIVE METABOLIC PANEL Lab Routine Pre-op testing Expected: 01/15/2024, Expires: 01/14/2025 EKG EKG Routine Pre-op testing Expected: 01/15/2024 (Approximate), Expires: 02/14/2025 Scheduled Procedures Name Priority Associated Diagnoses Date/Ti me LAPAROSCOPIC REPAIR INGUINAL HERNIA INITIAL Bilateral inguinal hernia without obstruction or gangrene, recurrence not specified COLONOSCOPY FLEXIBLE PROXIMA L DIAGNOSTIC Recall Encounter for screening colonoscopy Health Maintenance Due Date Last Done Comments Pneumococcal Vaccine: Pediatrics (0 to 5 Years) and At-Risk Patients (6 to 64 Years) (1 of 2 - PCV) 1977 Depression Screening 1983 HIV Screening 1986 Hepatitis C Screening 1989 DTaP,Tdap,and Td Vaccines (1 - Tdap) 1990 Hepatitis B Vaccine (1 of 3 - 19+ 3-dose series) 1990 Mammogram 2011 Fecal Occult Blood Test 01/04/2016 Sigmoidoscopy 01/04/2016 Zoster Vaccines (1 of 2) 2021 COVID-19 Vaccine (1 - 2022-24 season) 2023 Influenza Vaccine (FLU shot) (#1) 2024 02/25/2020 Diabetes Screening 12/31/2025 12/31/2022, 0 12/31/2022, 05/03/2022, Additional history exists Cologuard 03/07/2026 03/07/2023, 02/26/2023 Lipid Panel 01/01/2028 12/31/2022, 05/0 01/2022, 10/02/2021, [...] Not on filedocumented as of this encounter Visit Diagnoses Diagnosis Pre-op testing- Primary Preoperative examination, unspecified Bilateral inguinal hernia without obstruction or gangrene, recurrence not specified Bilateral inguinal hernia without obstruction or gangrene- Primary Inguinal hernia without mention of obstruction or gangrene, bilateral, (not specified as recurrent) documented in this encounter Advance Directives * Full Code (Latest Code Status on File) Date Activated Date Inactivated Comments 10/20/2019 9:46 AM 10/20/2019 2:57 PM This order r eflects the patients wishes and were consensually agreed upon. Care Teams Photographer'S Assistant Relationship Specialty Start Date End Date Sheila Nieto CRNP [address] [place] [address] PCP - General Nurse Practitioner 10/16/21 documented as of this encounter
--- OUTSIDE RECORDS SUMMARY | 2024-04-25 10:28 | External Medical Summary ---
Author Name Unknown Address Unknown Organization [id number] [id number] [place] [address] Laboratory Report Ordering Provider Test Date Status YU CATHERINE 01/15/2024 10:41:50 Final Observation Date Value Abnormality Reference (Units ) Status WBC, Total 01/15/2024 10:41:50 6.27 4.00-10.8 0 (K/uL) Final RBC 01/15/2024 10:41:50 4.86 3.85-5.15 (M/uL) Final Hemoglobin 01/15/2024 10:41:50 14.1 12.0-15.3 (g/dL) Final HCT 01/15/2024 10:41:50 44.0 36.0-45.2 (%) Final MCV 01/15/2024 10:41:50 90.5 81.5-97.5 (fL) Final MCH 01/15/2024 10:41:50 29.0 27.0-34.0 (pg) Final MCHC 01/15/2024 10:41:50 32.0 32.0-36.0 (g/dL) Final RDW 01/15/2024 10:41:50 14.3 11.5-15.5 (%) Final Platelets 01/15/2024 10:41:50 264 140-400 (K /uL) Final MPV 01/15/2024 10:41:50 9.8 6.6-11.1 ( fL) Final Performing Location [facility] [place] [address]
--- OUTSIDE RECORDS SUMMARY | 2024-04-25 10:28 | External Medical Summary | Summary of Care ---
Author Name Unknown Organization [facility] Address [address] [place] [address] Phone [phone] Care Team Providers Care Vacuum Plastic Forming Machine Operator Name Role Phone Sheila Nieto Primary Care Provider Reason for Visit * Reason Onset Date Comments Surgery Procedure Cancelled 01/23/2024 Encounter Details Date Type Department Care Team (Late st Contact Info) Description 01/23/2024 Telephone General Surgery, [facility] [address] [facility], Scheduling [address] [place] [address] Surgery Procedure Cancelled Allergies No known active [...] [phone] Jonathan Diamond MD [address] [place] [address] 02/07/2024 10:02 AM EDT - 02/07/2024 11:15 AM EDT Surgery OR [facility], Operating Room [facility] [address] [place] [phone] Jonathan Diamond MD [address] [place] [address] LAPAROSCOPIC REPAIR INGUINAL HERNIA INITIAL Scheduled Procedures [...] and were consensually agreed upon. Care Teams Vacuum Plastic Forming Machine Operator Relationship Specialty Start Date End Date Sheila Nieto CRNP [address] [address] [place] [address] PCP - General Nurse Practitioner 10/16/21 documented as of this encounter
--- OUTSIDE RECORDS SUMMARY | 2024-04-25 10:28 | External Medical Summary | Summary of Care ---
Author Name Unknown Organization [facility] Address [address] [facility] [place] [address] Phone [phone] Care Team Providers Care Lift Supervisor Name Role Phone Sheila Nieto Primary Care Provider Reason for Visit * Reason Comments NEW PATIENT Encounter Details Date Type Department Care Team (Late st Contact Info) Description 01/15/2024 10:00 AM EDT Office Visit General Surgery, [facility] [address] [facility] [place] [address] Jonathan Diamond MD [address] [place] [address] Pre-op testing*; Bilateral inguinal hernia without obstruction [...] performed by Diane Varela MD at [facility]COPY [facility] EGD, FLEXIBLE, DIAGNOSTIC 10/28/2017 mild stomach irritation, hiatal hernia/ESOPHAGOGASTRODUODENOSCOPY (EGD), FLEXIBLE, TRANSORAL, DIAGNOSTIC performed by Diane Varela MD at [facility] EGD, FLEXIBLE, DIAGNOSTIC 01/02/2019 normal bx/ESOPHAGOGASTRODUODENOSCOPY (EGD), FLEXIBLE, TRANSORAL, DIAGNOSTIC performed by Diane Varela MD at [facility] LAPAROSCOPY; CHOLECYSTECTOMY N/A 10/20/2019 LAPAROSCOPIC CHOLECYSTECTOMY performed by Reddy Alexander MD at [facility] MISCELLANEOUS ORDER ([facility] ONLY) Right knee surgery REMOVAL OF OVARY/OVIDUCT(S) with hysterectomy TENDON SHEATH INCISION, FINGER Left 02/06/2023 TRIGGER FINGER RELEASE performed by Gregory Jose MD at [facility] TOTAL HYSTERECTOMY age 24 Medications: Current Outpatient [...] occur. PLAN: Laparoscopic bilateral inguinal hernia at [facility] on 02/07/2024. Jonathan Diamond MD 01/15/2024 [...] performed by Diane Varela MD at [facility] EGD, FLEXIBLE, DIAGNOSTIC 10/28/2017 mild stomach irritation, hiatal hernia/ESOPHAGOGASTRODUODENOSCOPY (EGD), FLEXIBLE, TRANSORAL, DIAGNOSTIC performed by Diane Varela MD at [facility] EGD, FLEXIBLE, DIAGNOSTIC 01/02/2019 normal bx/ESOPHAGOGASTRODUODENOSCOPY (EGD), FLEXIBLE, TRANSORAL, DIAGNOSTIC performed by Diane Varela MD at [facility] LAPAROSCOPY; CHOLECYSTECTOMY N/A 10/20/2019 LAPAROSCOPIC CHOLECYSTECTOMY performed by Reddy Alexander MD at [facility] MISCELLANEOUS ORDER ([facility] ONLY) Right knee surgery REMOVAL OF OVARY/OVIDUCT(S) with hysterectomy TENDON SHEATH INCISION, FINGER Left 02/06/2023 TRIGGER FINGER RELEASE performed by Gregory Jose MD at [facility] TOTAL HYSTERECTOMY age 24 Medications: Current Outpatient [...] occur. PLAN: Laparoscopic bilateral inguinal hernia at [facility] on 02/07/2024. Jonathan Diamond MD 01/15/2024 [...] Team (Late st Contact Info) Description 01/15/2024 11:10 AM EDT Laboratory Laboratory, [facility] [address] [place] [phone] [facility] [address] [place] [address] Pre-op testing 02/07/2024 Hospital Encounter OR [facility], Operating Room [facility] [address] [place] [phone] Jonathan Diamond MD [address] [place] [address] 02/24/2024 11:30 AM EDT Office Visit General Surgery, [facility] [address] [place] [address] Jonathan Diamond MD [address] [place] [address] Pending Results Name Type Priority Associated Diagnoses Date /Time CBC WITH WBC DIFFERENTIAL Lab Routine Pre-op testing 01/15/2024 10:41 AM EDT COMPREHENSIVE METABOLIC PANEL Lab Routine Pre-op testing 01/15/2024 10:41 AM EDT Scheduled Orders Name Type Priority Associated Diagnoses [...] or gangrene, bilateral, (not specified as recurrent) Pre-op testing Preoperative examination, unspecified documented in this encounter Advance Directives * Full Code (Latest Code Status on File) Date Activated Date Inactivated Comments 10/20/2019 9:46 AM 10/20/2019 2:57 PM This order r eflects the patients wishes and were consensually agreed upon. Care Teams Lift Supervisor Relationship Specialty Start Date End Date Sheila Nieto CRNP [address] [address] PCP - General Nurse Practitioner 10/16/21 documented as of this encounter
--- OUTSIDE RECORDS SUMMARY | 2024-04-25 10:28 | External Medical Summary ---
Author Name Unknown Address Unknown Organization [facility] [place] [address] Laboratory Report Ordering Provider Test Date Status YU CATHERINE 01/15/2024 10:41:50 Final Observation Date Value Abnormality Reference (Units ) Status SYNC LEUKOCYTES IN BLOOD BY AUTOMATED COUNT 01/15/2024 10:41:50 6.27 4.00-10.80 (K/uL) Final Segs 01/15/2024 10:41:50 58.7 40.0-75.0 (%) Final Lymphs % 01/15/2024 10:41:50 30.8 18.0-42.0 (%) Final Monos 01/15/2024 10:41:50 6.4 1.0-11.0 (%) Final Eosinophils 01/15/2024 10:41:50 3.8 0.0-6.0 (%) Final Basos 01/15/2024 10:41:50 0.3 0.0-2.0 (%) Final Absolute Segs 01/15/2024 10:41:50 3.68 1.80-7.70 (K/uL) Final Lymphs, absolute 01/15/2024 10:41:50 1.93 1.00-4.80 (K/ul) Final Monos, Abs 01/15/2024 10:41:50 0.40 0.00-1.10 (K/uL) Final Eos, Abs 01/15/2024 10:41:50 0.24 0.00-0.70 (K/uL) Final Basos, Abs 01/15/2024 10:41:50 0.02 0.00-0.20 (K/uL) Final Performing Location [facility] [place] [address]
--- OUTSIDE RECORDS SUMMARY | 2024-04-25 10:28 | External Medical Summary | Summary of Care ---
Author Name Unknown Organization [facility] Address [address] [facility] [place] [address] Phone [phone] Care Team Providers Care Senior Property Manager Name Role Phone Sheila Nieto Primary Care Provider Reason for Visit * Reason Comments NEW PATIENT Encounter Details Date Type Department Care Team (Late st Contact Info) Description 01/15/2024 10:00 AM EDT Office Visit General Surgery, [facility] [address] [facility] [place] [address] Jonathan Diamond MD [address] [place] [address] Pre-op testing*; Bilateral inguinal hernia without obstruction [...] performed by Diane Varela MD at [facility] EGD, FLEXIBLE, DIAGNOSTIC 10/28/2017 mild stomach irritation, hiatal hernia/ESOPHAGOGASTRODUODENOSCOPY (EGD), FLEXIBLE, TRANSORAL, DIAGNOSTIC performed by Diane Varela MD at [facility] EGD, FLEXIBLE, DIAGNOSTIC 01/02/2019 normal bx/ESOPHAGOGASTRODUODENOSCOPY (EGD), FLEXIBLE, TRANSORAL, DIAGNOSTIC performed by Diane Varela MD at [facility] LAPAROSCOPY; CHOLECYSTECTOMY N/A 10/20/2019 LAPAROSCOPIC CHOLECYSTECTOMY performed by Reddy Alexander MD at [facility] MISCELLANEOUS ORDER ([facility] ONLY) Right knee surgery REMOVAL OF OVARY/OVIDUCT(S) with hysterectomy TENDON SHEATH INCISION, FINGER Left 02/06/2023 TRIGGER FINGER RELEASE performed by Gregory Jose MD at [facility] TOTAL HYSTERECTOMY age 24 Medications: Current [...] occur. PLAN: Laparoscopic bilateral inguinal hernia at [facility] on 02/07/2024. Jonathan Diamond MD 01/15/2024 10:04 [...] performed by Diane Varela MD at [facility] EGD, FLEXIBLE, DIAGNOSTIC 10/28/2017 mild stomach irritation, hiatal hernia/ESOPHAGOGASTRODUODENOSCOPY (EGD), FLEXIBLE, TRANSORAL, DIAGNOSTIC performed by Diane Varela MD at [facility] EGD, FLEXIBLE, DIAGNOSTIC 01/02/2019 normal bx/ESOPHAGOGASTRODUODENOSCOPY (EGD), FLEXIBLE, TRANSORAL, DIAGNOSTIC performed by Diane Varela MD at [facility] LAPAROSCOPY; CHOLECYSTECTOMY N/A 10/20/2019 LAPAROSCOPIC CHOLECYSTECTOMY performed by Reddy Alexander MD at [facility] MISCELLANEOUS ORDER ([facility] ONLY) Right knee surgery REMOVAL OF OVARY/OVIDUCT(S) with hysterectomy TENDON SHEATH INCISION, FINGER Left 02/06/2023 TRIGGER FINGER RELEASE performed by Gregory Jose MD at [facility] TOTAL HYSTERECTOMY age 24 Medications: Current [...] occur. PLAN: Laparoscopic bilateral inguinal hernia at [facility] on 02/07/2024. Jonathan Diamond MD 01/15/2024 10:04 [...] Room [facility] [address] [place] [phone] Jonathan Diamond MD [address] [place] [address] Scheduled Orders Name Type Priority Associated Diagnoses [...] and were consensually agreed upon. Care Teams Senior Property Manager Relationship Specialty Start Date End Date Sheila Nieto CRNP [address] [place] [address] PCP - General Nurse Practitioner 10/16/21 documented as of this encounter
--- OUTSIDE RECORDS SUMMARY | 2024-04-25 10:28 | External Medical Summary | Summary of Care ---
Author Name Unknown Organization [facility] Address [address] [facility] [place] [address] Phone [phone] Care Team Providers Care Load Tester Name Role Phone Sheila Nieto Primary Care Provider Reason for Visit * Reason Comments Outpatient Testing Encounter Details Date Type Department Care Team (Late st Contact Info) Description 01/15/2024 11:10 AM EDT Laboratory Laboratory, [facility] [address] [facility] [place] [phone] [facility] [address] [facility] [place] [address] Pre-op testing Allergies No known active allergiesdocumented as of [...] on file documented as of this encounter Plan of Treatment Upcoming Encounters Date Type Department Care Team (Late st Contact Info) Description 02/07/2024 Hospital Encounter OR [facility], Operating Room [facility] [address] [place] [phone] Jonathan Diamond MD [address] [place] [address] 02/24/2024 11:30 AM EDT Office Visit General Surgery, [facility] [address] [place] [address] oJnathan Diamond MD [address] [place] [address] Pending Results Name Type Priority Associated Diagnoses Date /Time CBC WITH WBC DIFFERENTIAL Lab Routine Pre-op testing 01/15/2024 10:41 AM EDT COMPREHENSIVE METABOLIC PANEL Lab Routine Pre-op testing 01/15/2024 10:41 AM EDT CBC Lab Routine Pre-op testing 01/15/2024 10:41 AM EDT DIFFERENTIAL, AUTOMATED Lab Routine Pre-op testing 01/15/2024 10:41 AM EDT Scheduled Procedures Name Priority Associated Diagnoses Date/Ti [...] 2) 2021 COVID-19 Vaccine (1 - season) 2023 Influenza Vaccine (FLU shot) (#1) [...] as of this encounter Visit Diagnoses Diagnosis Bilateral inguinal hernia without obstruction or gangrene- [...] and were consensually agreed upon. Care Teams Load Tester Relationship Specialty Start Date End Date Sheila Nieto CRNP [address] [address] [place] [address] PCP - General Nurse Practitioner 10/16/21 documented as of this encounter
--- NOTE | 2024-04-25 10:36 | Emergency Department Note ---
History of Present Illness General Chief complaint: Abdominal Pain Stated complaint: ABD PAIN, HAS 2 ABD HERNIAS AND BOWEL OBSTRUCTION Time Seen by Provider: 04/25/24 10:36 History of Present Illness Maximum Pain Intensity: 10 This is a 54-year-old female that presents to the emergency department via private vehicle with complaints of "abdominal pain". The patient notes that yesterday around 10:30 PM she began with severe abdominal pain after laying down. She thought perhaps this could be the appendix and presented to [facility] emergency department. She states that a CT scan was performed of the abdomen/pelvis without contrast and she was informed that there was a bowel obstruction. Ultimately she notes that she left the emergency department and returned home and there was vomiting. She then presents here for further assessment. Patient has history of IBS and type 2 diabetes. Abdominal surgical history she notes history of hysterectomy. She denies any fever. Patient notes vomiting bile. No blood in the emesis. Home Medications Medication Instructions Recorded Confirmed Type omeprazole 40 mg capsule,delayed 40 mg PO QAM 08/25/18 04/25/24 History release acetaminophen 500 mg tablet 1,000 mg PO Q6H PRN headache/pain 11/30/18 04/25/24 History (Tylenol Extra Strength) celecoxib 200 mg capsule 200 mg PO DAILY 07/24/22 04/25/24 History lisinopril 10 mg tablet 20 mg PO DAILY 07/24/22 04/25/24 History allopurinol 100 mg tablet 100 mg PO DAILY 08/07/22 04/25/24 History duloxetine 60 mg capsule,delayed 60 mg PO DAILY 08/19/22 04/25/24 History release ubrogepant 50 mg tablet (Ubrelvy) 50 mg PO DAILY PRN Migraine 08/19/22 04/25/24 History Headache evolocumab 140 mg/mL subcutaneous 0 mg subcut UD 08/11/23 04/25/24 History pen injector (Maldonado Fonseca) hyoscyamine sulfate 0.125 mg tablet 0.125 mg PO TID 08/11/23 04/25/24 History nortriptyline 25 mg capsule 25 mg PO HS 08/11/23 04/25/24 History linaclotide 145 mcg capsule 145 mcg PO DAILY 10/14/23 04/25/24 History (Levi) blood-glucose sensor (Dexcom G6 #9 ea 12/10/23 Rx Sensor device) Dexcom G6 Transmitter #1 ea 02/13/24 Rx (blood-glucose transmitter) gabapentin 100 mg capsule 100 mg PO TID PRN Pain #90 caps 02/13/24 04/25/24 Rx Ozempic 2 mg/dose (8 mg/3 mL) 2 mg (0.75 mL) subcut Q7D #3 mL 03/23/24 04/25/24 Rx subcutaneous pen injector (semaglutide) ezetimibe 10 mg tablet 10 mg PO DAILY #90 tabs 03/30/24 04/25/24 Rx metformin 500 mg tablet 1,000 mg (2 x 500 mg) PO BID #180 04/15/24 04/25/24 Rx tabs montelukast 10 mg tablet 10 mg PO HS 04/25/24 04/25/24 History Allergies Allergy/AdvReac Type Severity Reaction Status Date / Time No Known Allergies Allergy Verified 04/25/24 14:59 Past Med/Surg History Problem List (Updated 04/25/24 @ 23:11 by Rios Mercer PA-C) Nausea & vomiting (Acute) Small bowel obstruction (Acute) Metabolic acidosis Small bowel obstruction due to adhesions Cough Hypertension Obesity Dyslipidemia Peripheral neuropathy Type 2 diabetes mellitus GERD (gastroesophageal reflux disease) (Chronic) Stomach problems (Chronic) Medical History Irritable bowel syndrome (IBS) Arthritis Family History Other Kidney disease Social History Smoking Status: Never smoker Hx Alcohol Use: No Hx Substance Use: No Preferred Language: Citizen Of [place] Communication Ability: Effective Office Assistance Required: No Beliefs That Will Affect Care: None marital status: Current Living Situation: Spouse current occupational status: employed Feels Safe at Home: Yes Safety Concerns: Feels Safe At This Time Assistive Devices: Glasses Review of Systems A total of 10 systems reviewed and were otherwise negative Physical Exam Vital Signs Vital Signs - 24 hr 04/25/24 10:29 04/25/24 12:03 04/25/24 12:14 Temperature 36.2 C L Temperature Source Temporal Artery Scan Pulse Rate 95 H 78 Pulse Rate [Apical] 69 Pulse Rhythm Regular Pulse Strength [Apical] Normal Respiratory Rate 20 20 Respiratory Effort / Characteristics Non-Labored Spontaneous Non-Labored Spontaneous Respiratory Depth Normal Normal Respiratory Pattern Regular Blood Pressure 128/90 Blood Pressure [Left Arm] 130/87 Blood Pressure Mean 102 Blood Pressure Mean [Left Arm] 101 Pulse Oximetry 99 98 96 Oxygen Delivery Method Room Air Room Air Room Air Sepsis Recent Fever Within 48 Hours No Sepsis New/Unexplained Change in Mental Status N/A Sepsis Action Taken by Nursing No Action Required 04/25/24 12:46 04/25/24 13:57 Temperature Temperature Source Pulse Rate 76 Pulse Rate [Apical] 84 Pulse Rhythm Pulse Strength [Apical] Normal Respiratory Rate 18 Respiratory Effort / Characteristics Non-Labored Spontaneous Respiratory Depth Normal Respiratory Pattern Regular Blood Pressure Blood Pressure [Left Arm] 127/74 Blood Pressure Mean Blood Pressure Mean [Left Arm] 91 Pulse Oximetry 98 Oxygen Delivery Method Room Air Sepsis Recent Fever Within 48 Hours Sepsis New/Unexplained Change in Mental Status Sepsis Action Taken by Nursing VITAL SIGNS - Vital signs and nursing notes were reviewed. Stable and afebrile. GENERAL -54-year-old female appearing her stated age who is in no acute distress. Communicates well with provider and answers questions appropriately. SKIN - Without rashes. No meningeal or petechial rash. HEAD - NC/AT. EYES - PERRL with EOMI bilaterally. Sclera anicteric. MOUTH/OROPHARYNX - Without perioral cyanosis. NECK - Neck with FROM. No nuchal rigidity. LUNGS - Chest wall symmetric without accessory muscle use, intercostals retractions, or central cyanosis. Normal vesicular breath sounds CTA B/L. No wheezes, rales, or rhonchi appreciated. CARDIAC - RRR ABDOMEN - Abdominal contour normal without pulsations or visible masses. Bowel sounds overall normal active. There is generalized abdominal tenderness to palpation. No guarding or rigidity. EXTREMITIES - No clubbing or peripheral cyanosis. +5/5 strength noted in UE/LE bilaterally. NEUROLOGIC - Cranial nerves grossly intact. PSYCH -alert, oriented and pleasant on exam. Course Administered Medications Acetaminophen (Ofirmev) 1,000 mg in 100 mls @ 400 mls/hr IV Q8H PRN PRN Reason: Pain Stop: 04/28/24 14:01 Last Infusion: 04/25/24 16:37 Dose: Infused Documented By: Admin: 04/25/24 16:20 Dose: 400 mls/hr Documented By: ANU Dextrose/Lactated Ringer's (D5w And Lactated Ringers) 1,000 mls @ 100 mls/hr IV .Q10H JASON Stop: 04/26/24 15:35 Last Admin: 04/25/24 15:49 Dose: 100 mls/hr Documented By: ANU Famotidine (Pepcid 20mg Iv Push) 20 mg in 5 mls @ 2.5 mls/min IV Q12H JASON Stop: 05/25/24 15:59 Last Admin: 04/25/24 17:37 Dose: 2.5 mls/min Documented By: ANU Ketorolac Tromethamine (Ketorolac Tromethamine 15 Mg/Ml Vial) 15 mg IV Q6H PRN PRN Reason: Pain Stop: 04/30/24 14:01 Last Admin: 04/25/24 16:19 Dose: 15 mg Documented By: ANU Miscellaneous (Ubrelvy: Order Awaiting Action) 1 each N/A QS JASON Stop: 05/25/24 15:59 Last Admin: 04/25/24 17:09 Dose: Not Given Documented By: ANU Nortriptyline HCl (Nortriptyline Hcl 25 Mg Cap) 25 mg PO HS JASON Stop: 05/25/24 20:59 Last Admin: 04/25/24 20:39 Dose: 25 mg Documented By: RES Discontinued Medications Fentanyl Citrate (Fentanyl Citrate Pf 100 Mcg/2 Ml Vial) 50 mcg IV NOW STA Stop: 04/25/24 11:45 Last Admin: 04/25/24 11:52 Dose: 50 mcg Documented By: TAIWO Hydromorphone HCl (Hydromorphone Inj 0.5 Mg/0.5 Ml Syr) 0.5 mg IV NOW STA Stop: 04/25/24 11:42 Last Admin: 04/25/24 11:53 Dose: Not Given Documented By: TAIWO Sodium Chloride (Nss) 1,000 mls @ 999 mls/hr IV .Q1H1M ONE Stop: 04/25/24 12:10 Last Infusion: 04/25/24 12:27 Dose: Infused Documented By: Admin: 04/25/24 11:17 Dose: 999 mls/hr Documented By: TAIWO Insulin Aspart (Insulin Aspart Per Unit Charge) 0 units SC ACHS JASON Stop: 05/25/24 16:29 Last Admin: 04/25/24 17:09 Dose: Not Given Documented By: ANU Ioversol (Optiray 320 100ml) 93 ml IV ONCE ONE Stop: 04/25/24 12:22 Last Admin: 04/25/24 12:21 Dose: 93 ml Documented By: BENITO Ondansetron HCl (Ondansetron Inj 2 Mg/Ml 2 Ml Vial) 4 mg IV NOW STA Stop: 04/25/24 11:11 Last Admin: 04/25/24 11:18 Dose: 4 mg Documented By: TAIWO Medical Decision Making Laboratory Data 04/25/24 11:11 04/25/24 11:00 Lab Results 04/25/24 04/25/24 04/25/24 Range/Units 11:00 11:11 13:20 WBC 9.45 (4.8-10.8) K/ul RBC 5.12 (4.20-5.40) M/uL Hgb 15.1 (12.0-16.0) g/dl Hct 43.6 (37.0-47.0) % MCV 85.2 (80.0-100.0) fL MCH 29.5 (25.0-34.0) pg MCHC 34.6 (32.0-36.0) g/dL RDW Std Deviation 40.5 (36.4-46.3) fL RDW Coeff of Zoey 13.1 (11.5-14.5) % Plt Count 315 (130-400) K/uL MPV 9.8 (9.4-12.4) fL Immature Gran % (Auto) 0.5 % Neut % (Auto) 77.4 % Lymph % (Auto) 15.6 % Porter % (Auto) 5.7 % Eos % (Auto) 0.5 % Baso % (Auto) 0.3 % Neut # (Auto) 7.31 H (1.40-6.50) K/uL Lymph # (Auto) 1.47 (1.20-3.40) K/uL Porter # (Auto) 0.54 (0.11-0.59) K/uL Eos # (Auto) 0.05 (0.00-0.50) K/uL Baso # (Auto) 0.03 (0.00-0.20) K/uL Immature Gran # (Auto) 0.05 (0.01-0.20) K/uL Sodium 137 (136-145) mmol/L Potassium 4.4 (3.5-5.1) mmol/L Chloride 101 (98-107) mmol/L Carbon Dioxide 20 L (21-32) mmol/L Anion Gap 16 H (3-11) BUN 15 (6-23) mg/dl Creatinine 0.92 (0.6-1.2) mg/dl Est Cr Clr Drug Dosing 78.6 ml/min eGFR 74.45 BUN/Creatinine Ratio 16.3 (10-20) Glucose 103 H (70-99(Fasting)) mg/dl Lactate 3.2 H* 2.3 H* (0.4-2.0) mmol/L Calcium 10.3 (8.6-10.3) mg/dl Total Bilirubin 0.6 (0.2-1.0) mg/dl AST 23 (13-39) U/L ALT 25 (7-52) U/L Alkaline Phosphatase 81 (34-104) U/L Total Protein 8.3 (6.0-8.3) gm/dl Albumin 4.9 (3.4-5.0) gm/dl Globulin 3.4 (2.5-4.0) gm/dl Albumin/Globulin Ratio 1.4 (0.9-2) Lipase 36 (11-82) U/L Imaging Data Radiologist's Impression: KUB X-Ray 04/25/24 11:10 EXAM: Radiograph of the Abdomen 1 View INDICATION: Abdominal pain. TECHNIQUE: Frontal supine view of the abdomen/pelvis. COMPARISON: 10/29/2022 FINDINGS: Limitations: None. Gastrointestinal tract: Dilated small bowel loops noted in the left abdomen. Loops measure up to 4 cm. There is air and stool in the colon to the rectum. Organs: Cholecystectomy. Bones/joints: No fracture, erosion or dislocation. Soft tissues: No abnormality noted. No radiopaque foreign body noted. IMPRESSION: Dilated small bowel loops consistent with early or partial small bowel obstruction. ACT 112: Negative or not required by law. Electronically signed by Nhung Garcia 04-25-2024 12:06 PM Abdomen/Pelvis CT 04/25/24 11:35 EXAM: CT Abdomen and Pelvis With Intravenous Contrast INDICATION: Lower abdominal pain. Vomiting. TECHNIQUE: Axial computed tomography images of the abdomen and pelvis with intravenous contrast. Sagittal and coronal reformatted images were created and reviewed. This CT exam was performed using one or more of the following dose reduction techniques: automated exposure control, adjustment of the mA and/or kV according to patient size, and/or use of iterative reconstruction technique. CONTRAST: 93 ml of Optiray 320 was administered intravenously. COMPARISON: 10/29/2022 FINDINGS: Limitations: None. Lung bases: No abnormality noted. Pleural space: No visualized pleural effusion or pneumothorax. Heart: No abnormality noted. Mediastinum: Stable hiatal hernia. ABDOMEN: Liver: The liver is enlarged measuring 22.3 cm long. Hypodensity noted typical of fatty replacement. Smooth cortical contour. No mass or ductal dilation. Gallbladder and bile ducts: Cholecystectomy. No ductal dilation or stone noted. Pancreas: Homogeneous enhancement. No mass, inflammation or ductal dilation. Spleen: No significant abnormality noted. Adrenals: Stable solid 2.4 x 1.7 cm right adrenal nodule. Left appears normal. Kidneys and ureters: Normal enhancement. No mass, hydronephrosis or visualized stone. Stomach and bowel: Small bowel obstruction noted with a defined transition point in the midline of the upper pelvis series 5 image 204. Mild surrounding edema in the mesentery. Collapsed distal small bowel loops. There is some air and stool in the colon. PELVIS: Appendix: Well seen and appears normal. Bladder: No filling defects to suggest mass or large stone. No inflammation. Reproductive: Hysterectomy. ABDOMEN and PELVIS: Intraperitoneal space: No free air. No significant fluid collection. Bones/joints: No acute changes. Soft tissues: No significant abnormality noted. Vasculature: No abdominal aortic aneurysm. Lymph nodes: No pneumatosis few prominent normal size mesenteric nodes present. No pathologically enlarged nodes. IMPRESSION: Small bowel obstruction with distinct transition point in the midline mid pelvis. Consider adhesions. ACT 112: Negative or not required by law. Electronically signed by Nhung Garcia 04-25-2024 12:39 PM [facility] Narrative Patient was seen and evaluated as above in room A11 B. Review was performed of triage nursing notes and vital signs. Patient presents to us today for evaluation of abdominal pain with a known bowel obstruction per noncontrast CT yesterday per patient. I did ask staff to reach out to the facility patient was seen yesterday to obtain record. On my assessment the patient is with a tender abdomen. Options of care were discussed with the patient. IV access with established. Labs were drawn. Patient does note significant abdominal discomfort rating her current discomfort as a 10/10. For this reason, one-time dose of IV narcotics felt to be reasonable. I did discuss several analgesic options with the patient. I did discuss benefit versus risk of this medication with the patient particular in the setting of a bowel obstruction. It is felt that the benefit outweighed risk. I initially chose to hold off on Toradol pending CT scan in the event there may be any bleeding. IV Tylenol considered and offered however noting severity of pain higher strength medicine was utilized. IV Zofran ordered for nausea. IV fluids also ordered. Patient was sent for a CT scan of the abdomen/pelvis with IV contrast noting the patients discomfort and ongoing vomiting. I was able to review the CT scan report from yesterday and this was without contrast. CT scan report is as above. The patient does have small bowel obstruction with distinct transition point in the midline mid pelvis. Radiologist notes consider adhesions. Labs reveal no leukocytosis or concerning anemia. Mild elevation of anion gap at 16. Lactate 3.2 and did downtrend to 2.3 after IV fluids. Ischemic etiology felt to be less likely. Patient does appear dehydrated. Lipase within normal range. Urinalysis does not suggest infection. Noting the bowel obstruction with vomiting, we will proceed with NG tube. I did discuss today's findings and presentation with the on-call general surgeon, Dr. Diamond. I spoke to him at 12:48 PM. He recommended medical admission and he will see the patient during hospitalization. In regard to the NG tube, his was placed and clinically appeared to be functioning well. I was in the process of ordering a KUB to check placement and I also immediately went to bedside following placement and the patient demanded that the NG tube be removed. I discussed several options with the patient and ultimately the patient continued to demand the NG to be removed. Patient aware of the risks associated with removal of the NG tube. Per patient wishes, the NG tube was removed. Case discussed with the hospitalist service. Please refer to further documentation regarding her stay. In the evaluation and treatment of this patient the following differential diagnoses were entertained: Bowel obstruction, intestinal perforation, UTI, pyonephritis, diverticulitis, sepsis, among others Impression & Plan Small bowel obstruction, Nausea & vomiting Discharge Plan Visit Data Chief Complaint: Abdominal Pain Stated Complaint: ABD PAIN, HAS 2 ABD HERNIAS AND BOWEL OBSTRUCTION ED Provider: [facility] Midlevel Provider: Rios Mercer Discharge Problem: Small bowel obstruction, Nausea & vomiting Patient Disposition: Admitted As Inpatient Condition: Good Discharge Instructions Interventions: ED Discharge Assessment Last Done: 04/25/24 15:19
[2024-04-25] MEDS: SODIUM CHLORIDE 0.9% 1,000 ML IV ONE (11:17)
[2024-04-25] MEDS: ONDANSETRON INJ 2 MG/ML 2 ML VIAL IV STA (11:18)
[2024-04-25 11:37] LABS: Basophils # (auto) 0.03 K/uL (0.00-0.20); Basophils % (auto) 0.3 %; Eosinophils # (auto) 0.05 K/uL (0.00-0.50); Eosinophils % (auto) 0.5 %; Hematocrit (blood only) 43.6 % (37.0-47.0); Hemoglobin 15.1 g/dl (12.0-16.0); Immature Granulocytes # (auto) 0.05 K/uL (0.01-0.20); Immature Granulocytes % (auto) 0.5 %; Lymphocytes # (auto) 1.47 K/uL (1.20-3.40); Lymphocytes % (auto) 15.6 %; Mean Corpuscular Hemoglobin 29.5 pg (25.0-34.0); Mean Corpuscular Hgb Conc 34.6 g/dL (32.0-36.0); Mean Corpuscular Volume 85.2 fL (80.0-100.0); Mean Platelet Volume 9.8 fL (9.4-12.4); Monocytes # (auto) 0.54 K/uL (0.11-0.59); Monocytes % (auto) 5.7 %; Neutrophils # (auto) 7.31 K/uL (1.40-6.50); Neutrophils % (auto) 77.4 %; Platelet Count 315 K/uL (130-400); RDW Coefficient of Variation 13.1 % (11.5-14.5); RDW Standard Deviation 40.5 fL (36.4-46.3); Red Blood Count 5.12 M/uL (4.20-5.40); White Blood Count 9.45 K/ul (4.8-10.8)
[2024-04-25] MEDS: fentaNYL citrate PF 100 MCG/2 ML VIAL IV STA (11:52)
[2024-04-25] MEDS: HYDROmorphone INJ 0.5 MG/0.5 ML SYR IV STA (11:53)
[2024-04-25 11:55] LABS: Albumin Globulin Ratio 1.4 (0.9-2); Albumin Level 4.9 gm/dl (3.4-5.0); BUN Creatinine Ratio 16.3 (10-20); Bilirubin,Total 0.6 mg/dl (0.2-1.0); Calcium 10.3 mg/dl (8.6-10.3); Creatinine Clr Calc Pharmacy 78.6 ml/min; Globulin 3.4 gm/dl (2.5-4.0); Potassium 4.4 mmol/L (3.5-5.1); Total Protein 8.3 gm/dl (6.0-8.3)
--- NOTE | 2024-04-25 12:06 | XRay Report ---
EXAM: Radiograph of the Abdomen 1 View INDICATION: Abdominal pain. TECHNIQUE: Frontal supine view of the abdomen/pelvis. COMPARISON: 10/29/2022 FINDINGS: Limitations: None. Gastrointestinal tract: Dilated small bowel loops noted in the left abdomen. Loops measure up to 4 cm. There is air and stool in the colon to the rectum. Organs: Cholecystectomy. Bones/joints: No fracture, erosion or dislocation. Soft tissues: No abnormality noted. No radiopaque foreign body noted. IMPRESSION: Dilated small bowel loops consistent with early or partial small bowel obstruction. ACT 112: Negative or not required by law. Electronically signed by Nhung Garcia 04-25-2024 12:06 PM
[2024-04-25] MEDS: OPTIRAY 320 100ml IV ONE (12:21)
--- NOTE | 2024-04-25 12:40 | CT Scan Report ---
EXAM: CT Abdomen and Pelvis With Intravenous Contrast INDICATION: Lower abdominal pain. Vomiting. TECHNIQUE: Axial computed tomography images of the abdomen and pelvis with intravenous contrast. Sagittal and coronal reformatted images were created and reviewed. This CT exam was performed using one or more of the following dose reduction techniques: automated exposure control, adjustment of the mA and/or kV according to patient size, and/or use of iterative reconstruction technique. CONTRAST: 93 ml of Optiray 320 was administered intravenously. COMPARISON: 10/29/2022 FINDINGS: Limitations: None. Lung bases: No abnormality noted. Pleural space: No visualized pleural effusion or pneumothorax. Heart: No abnormality noted. Mediastinum: Stable hiatal hernia. ABDOMEN: Liver: The liver is enlarged measuring 22.3 cm long. Hypodensity noted typical of fatty replacement. Smooth cortical contour. No mass or ductal dilation. Gallbladder and bile ducts: Cholecystectomy. No ductal dilation or stone noted. Pancreas: Homogeneous enhancement. No mass, inflammation or ductal dilation. Spleen: No significant abnormality noted. Adrenals: Stable solid 2.4 x 1.7 cm right adrenal nodule. Left appears normal. Kidneys and ureters: Normal enhancement. No mass, hydronephrosis or visualized stone. Stomach and bowel: Small bowel obstruction noted with a defined transition point in the midline of the upper pelvis series 5 image 204. Mild surrounding edema in the mesentery. Collapsed distal small bowel loops. There is some air and stool in the colon. PELVIS: Appendix: Well seen and appears normal. Bladder: No filling defects to suggest mass or large stone. No inflammation. Reproductive: Hysterectomy. ABDOMEN and PELVIS: Intraperitoneal space: No free air. No significant fluid collection. Bones/joints: No acute changes. Soft tissues: No significant abnormality noted. Vasculature: No abdominal aortic aneurysm. Lymph nodes: No pneumatosis few prominent normal size mesenteric nodes present. No pathologically enlarged nodes. IMPRESSION: Small bowel obstruction with distinct transition point in the midline mid pelvis. Consider adhesions. ACT 112: Negative or not required by law. Electronically signed by Nhung Garcia 04-25-2024 12:39 PM
--- NOTE | 2024-04-25 14:08 | History & Physical Report ---
Date of Service April 25, 2024 Assessment & Plan (1) Small bowel obstruction due to adhesions: (2) Metabolic acidosis: (3) Type 2 diabetes mellitus: (4) Irritable bowel syndrome (IBS): (5) Hypertension: Plan Patient presents to the emergency room with persistent small bowel obstruction most likely due to adhesions that did not respond to conservative treatment at home. Admit to the MedSurg unit Encourage patient to reconsider NG tube, however at this time patient continues to decline IV fluid resuscitation Monitor glucose, cover with insulin as needed N.p.o. Monitor electrolytes and renal function Surgical consultation Outpatient oral medications as ordered IV Toradol and Tylenol for pain control Antiemetics History of Present Illness Chief Complaint: Abdominal pain, nausea, vomiting Primary Care Provider: GREGORIO Holt Patient is a 54-year-old female with previous history of hysterectomy and cholecystectomy and irritable bowel syndrome yesterday presented to an outside hospital in [place] with similar complaints. They diagnosed her with a small bowel obstruction there and recommended hospitalization, however the patient chose not to stay. Her symptoms persisted throughout the night. She continued to have nausea vomiting and presented [facility] emergency department for fu rther evaluation. Evaluation in the ED again today confirmed small bowel obstruction. NG tube was placed in the emergency department. However the patient did not tolerate that for very long and insisted that it be removed. She was referred to our service after initially contacting surgery to medically manage her small bowel obstruction. Time my evaluation the patient was no longer vomiting her nausea had improved. Abdominal pain slightly improved. She denies any fever or chills. No cough or cold symptoms no chest pain or shortness of breath. Is not passing flatus or any bowel movement. is at the bedside and confirms history. Allergies Allergy/AdvReac Type Severity Reaction Status Date / Time No Known Allergies Allergy Verified 12/02/23 09:48 Home Medications Medication Instructions Recorded Confirmed Type omeprazole 40 mg capsule,delayed 40 mg PO QAM 08/25/18 12/02/23 History release acetaminophen 500 mg tablet 1,000 mg PO Q6H PRN headache/pain 11/30/18 12/02/23 History (Tylenol Extra Strength) celecoxib 200 mg capsule 200 mg PO DAILY 07/24/22 12/02/23 History lisinopril 10 mg tablet 20 mg PO DAILY 07/24/22 12/02/23 History allopurinol 100 mg tablet 100 mg PO DAILY 08/07/22 12/02/23 History duloxetine 60 mg capsule,delayed 60 mg PO DAILY 08/19/22 12/02/23 History release ubrogepant 50 mg tablet (Ubrelvy) 50 mg PO DAILY PRN Migraine 08/19/22 12/02/23 History Headache evolocumab 140 mg/mL subcutaneous 140 mg subcut .Q2WK 08/11/23 12/02/23 History pen injector (Maldonado Fonseca) hydrocodone-homatropine 5 mg-1.5 5 ml PO Q6H PRN cough #100 mL 08/11/23 12/02/23 Rx mg/5 mL (5 mL) oral syrup (Hycodan) hyoscyamine sulfate 0.125 mg tablet 0.125 mg PO TID 08/11/23 12/02/23 History nortriptyline 25 mg capsule 25 mg PO HS 08/11/23 12/02/23 History tirzepatide 5 mg/0.5 mL 5 mg subcut WK 08/11/23 12/02/23 History subcutaneous pen injector (Mounjaro) linaclotide 145 mcg capsule 145 mcg PO DAILY 10/14/23 12/02/23 History (Linzess) phenazopyridine 200 mg tablet 200 mg PO TID PRN pain 2 days #6 11/22/23 12/02/23 Rx (Pyridium) tabs blood-glucose sensor (Dexcom G6 #9 ea 12/10/23 Rx Sensor device) Dexcom G6 Transmitter #1 ea 02/13/24 Rx (blood-glucose transmitter) gabapentin 100 mg capsule 100 mg PO TID PRN Pain #90 caps 02/13/24 Rx Ozempic 2 mg/dose (8 mg/3 mL) 2 mg (0.75 mL) subcut Q7D #3 mL 03/23/24 Rx subcutaneous pen injector (semaglutide) ezetimibe 10 mg tablet 10 mg PO DAILY #90 tabs 03/30/24 Rx metformin 500 mg tablet 1,000 mg (2 x 500 mg) PO BID #180 04/15/24 Rx tabs Past Med/Surg History Problem List (Updated 04/25/24 @ 14:07 by Jamie Whatley DO) Metabolic acidosis Small bowel obstruction due to adhesions Cough Hypertension Obesity Dyslipidemia Peripheral neuropathy Type 2 diabetes mellitus GERD (gastroesophageal reflux disease) (Chronic) Stomach problems (Chronic) Medical History Irritable bowel syndrome (IBS) Arthritis Family History Other Kidney disease Social History Smoking Status: Never smoker Preferred Language: Citizen Of [place] marital status: Current Living Situation: Spouse current occupational status: employed Feels Safe at Home: Yes Review of Systems Review of Systems: Pertinent positive and negative review of systems as mentioned in the HPI Physical Exam Physical Exam: Constitutional: Alert, ill in appearance, nontoxic HEENT: Mucous membranes dry. Sclera clear Neck: Soft, no adenopathy Lungs: Clear to auscultation, decreased, no wheezes rales or rhonchi CV: S1-S2, regular Abdomen: Hyperactive, high-pitched bowel sounds, slightly distended, diffuse tenderness, no guarding rigidity or rebound Extremities: No significant edema Musculoskeletal: No significant joint tenderness Neuro: No focal deficits Psych: Cooperative, normal mood Results & Data Results & Data Vital Signs (Past 12 Hours) Vital Signs Temp Pulse Pulse Resp BP BP Pulse Ox 04/25/24 13:57 84 18 127/74 98 04/25/24 12:46 76 04/25/24 12:14 69 20 130/87 96 04/25/24 12:03 78 98 04/25/24 10:29 36.2 C L 95 H 20 128/90 99 O2 Del Method 04/25/24 13:57 Room Air 04/25/24 12:46 04/25/24 12:14 Room Air 04/25/24 12:03 Room Air 04/25/24 10:29 Room Air Diagnostic Findings Reviewed imaging, laboratory and diagnostic studies. 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
[2024-04-25] MEDS ORDERED: GLUCOSE 40% GEL 15 GM TUBE PO PRN (15:36)
[2024-04-25] MEDS ORDERED: ONDANSETRON INJ 2 MG/ML 2 ML VIAL IV PRN (15:36)
[2024-04-25] MEDS ORDERED: GLUCAGON FOR INJ 1 MG VIAL SQ PRN (15:36)
[2024-04-25] MEDS ORDERED: ACETAMINOPHEN 500 MG TAB PO PRN (15:36)
[2024-04-25] MEDS ORDERED: PROCHLORPERAZINE 5 MG in SYRINGE 4 ML IV PRN (15:36)
[2024-04-25] MEDS ORDERED: GLUCOSE 10 TAB/TUBE PO PRN (15:36)
[2024-04-25] MEDS ORDERED: DEXTROSE 50% 50 ML SYRINGE IV PRN (15:36)
[2024-04-25] MEDS ORDERED: CARBOHYDRATES FOR HYPOGLYCEMIA PO PRN (15:36)
[2024-04-25 15:46] LABS: Appearance Urine Clear (Clear); Bilirubin Urine Negative (Negative); Blood Urine Negative (Negative); Color Urine Yellow; Glucose Urine UA Negative (Negative); Ketones Urine 1+ (Negative); Leukocyte Esterase Urine Negative (Negative); Nitrite Urine Negative (Negative); Protein Urine Negative (Negative); Specific Gravity Urine > 1.045 (1.000-1.030); Urobilinogen Urine Negative (Negative)
[2024-04-25] MEDS: D5W AND LACTATED RINGERS 1,000 ML IV SCH (15:49)
[2024-04-25] MEDS: KETOROLAC TROMETHAMINE 15 MG/ML VIAL IV PRN (16:19)
[2024-04-25] MEDS: ACETAMINOPHEN 1,000 MG/100 ML VIAL IV PRN (16:20)
[2024-04-25] MEDS: INSULIN ASPART PER UNIT CHARGE SC SCH (17:09)
[2024-04-25] MEDS: FAMOTIDINE 20MG IV PUSH 20 MG/5 ML SYR IV SCH (17:37)
[2024-04-25] MEDS: NORTRIPTYLINE HCL 25 MG CAP PO SCH (20:39)
[2024-04-25 22:21] VITALS: TEMP 97.7; O2SAT 96
[2024-04-26] MEDS: INSULIN ASPART PER UNIT CHARGE SC SCH (00:12)
[2024-04-26 06:22] LABS: Hematocrit (blood only) 39.9 % (37.0-47.0); Hemoglobin 13.2 g/dl (12.0-16.0); Mean Corpuscular Hemoglobin 29.1 pg (25.0-34.0); Mean Corpuscular Hgb Conc 33.1 g/dL (32.0-36.0); Mean Corpuscular Volume 88.1 fL (80.0-100.0); Mean Platelet Volume 9.9 fL (9.4-12.4); Platelet Count 257 K/uL (130-400); RDW Coefficient of Variation 13.5 % (11.5-14.5); RDW Standard Deviation 44.1 fL (36.4-46.3); Red Blood Count 4.53 M/uL (4.20-5.40); White Blood Count 5.46 K/ul (4.8-10.8)
[2024-04-26 06:42] LABS: BUN Creatinine Ratio 14.3 (10-20); Creatinine Clr Calc Pharmacy 102.9 ml/min; Magnesium 1.7 mg/dl (1.7-2.4); Phosphorus 3.5 mg/dl (2.5-4.9); Potassium 3.6 mmol/L (3.5-5.1)
[2024-04-26 07:19] VITALS: BP 102/69; PULSE 85; RESP 16
[2024-04-26] MEDS: allopurinoL 100 MG TAB PO SCH (08:29)
[2024-04-26] MEDS: lisinopril 20 MG TAB PO SCH (08:29)
[2024-04-26] MEDS: DULoxetine HCL 60 MG CAP PO SCH (08:29)
--- NOTE | 2024-04-26 09:19 | XRay Report ---
EXAM: Radiograph of the Abdomen 1 View INDICATION: Small Bowel obstruction. TECHNIQUE: Frontal supine view of the abdomen/pelvis. COMPARISON: 04/25/2024 FINDINGS: Limitations: None. Gastrointestinal tract: There is significantly improved small bowel distention. There is a minimally dilated small bowel loop in the right lower quadrant. There is more air throughout the colon to the rectum. No colonic distention. Organs: Visualized organ shadows appear grossly normal. Bones/joints: No fracture, erosion or dislocation. Soft tissues: No abnormality noted. No radiopaque foreign body noted. IMPRESSION: Significantly improved small bowel obstruction. ACT 112: Negative or not required by law. Electronically signed by Nhung Garcia 04-26-2024 09:19 AM
--- NOTE | 2024-04-26 10:10 | Surgery Consultation ---
Date of Consultation April 26, 2024 Assessment & Plan (1) Ileus: resolved begin diet ambulate discharge per medical team History of Present Illness Attending Physician: Jorge Patel MD History of Present Illness This is a 54YO female with previous history of hysterectomy and cholecystectomy and irritable bowel syndrome admitted with a SBO by CT scan. She has had complaints nausea and vomiting which has resolved. Normal BM yesterday and symptoms resolved. The patient is hungry. She denies any fever or chills. Allergies Allergy/AdvReac Type Severity Reaction Status Date / Time No Known Allergies Allergy Verified 04/25/24 14:59 Home Medications Medication Instructions Recorded Confirmed Type omeprazole 40 mg capsule,delayed 40 mg PO QAM 08/25/18 04/25/24 History release acetaminophen 500 mg tablet 1,000 mg PO Q6H PRN headache/pain 11/30/18 04/25/24 History (Tylenol Extra Strength) celecoxib 200 mg capsule 200 mg PO DAILY 07/24/22 04/25/24 History lisinopril 10 mg tablet 20 mg PO DAILY 07/24/22 04/25/24 History allopurinol 100 mg tablet 100 mg PO DAILY 08/07/22 04/25/24 History duloxetine 60 mg capsule,delayed 60 mg PO DAILY 08/19/22 04/25/24 History release ubrogepant 50 mg tablet (Ubrelvy) 50 mg PO DAILY PRN Migraine 08/19/22 04/25/24 History Headache evolocumab 140 mg/mL subcutaneous 0 mg subcut UD 08/11/23 04/25/24 History pen injector (Maldonado Fonseca) hyoscyamine sulfate 0.125 mg tablet 0.125 mg PO TID 08/11/23 04/25/24 History nortriptyline 25 mg capsule 25 mg PO HS 08/11/23 04/25/24 History linaclotide 145 mcg capsule 145 mcg PO DAILY 10/14/23 04/25/24 History (Levi) blood-glucose sensor (Dexcom G6 #9 ea 12/10/23 Rx Sensor device) Dexcom G6 Transmitter #1 ea 02/13/24 Rx (blood-glucose transmitter) gabapentin 100 mg capsule 100 mg PO TID PRN Pain #90 caps 02/13/24 04/25/24 Rx Ozempic 2 mg/dose (8 mg/3 mL) 2 mg (0.75 mL) subcut Q7D #3 mL 03/23/24 04/25/24 Rx subcutaneous pen injector (semaglutide) ezetimibe 10 mg tablet 10 mg PO DAILY #90 tabs 03/30/24 04/25/24 Rx metformin 500 mg tablet 1,000 mg (2 x 500 mg) PO BID #180 04/15/24 04/25/24 Rx tabs montelukast 10 mg tablet 10 mg PO HS 04/25/24 04/25/24 History Patient History Medical History Irritable bowel syndrome (IBS) Arthritis Family History Other Kidney disease Social History Smoking Status: Never smoker Hx Alcohol Use: No Hx Substance Use: No Preferred Language: [place] Communication Ability: Effective Derrick Follower Required: No Beliefs That Will Affect Care: None marital status: Current Living Situation: Spouse current occupational status: employed Feels Safe at Home: Yes Safety Concerns: Feels Safe At This Time Assistive Devices: Glasses Review of Systems Constitutional: no fever and no chills Eyes: no problem reported Ear, Nose, Mouth, Throat: no problem reported Respiratory: + cough; no dyspnea Cardiovascular: no chest pain Gastrointestinal: no abdominal pain, no nausea, no vomiting and no change in bowel habits Genitourinary: no dysuria Musculoskeletal: no problem reported Integumentary: no problem reported Neurologic: no localized weakness Psychiatric: no behavioral changes Hematologic / Lymphatic: no easy bleeding and no easy bruising Physical Exam Constitutional: WD/WN, vitals as above Eyes: PERRL, conjunctivae normal, anicteric sclerae Neck: trachea midline Respiratory: normal respiratory effort, lungs clear to auscultation Cardiovascular: RRR, no murmur, no edema Gastrointestinal (Abdomen): Inspection/Auscultation: abdomen normal to inspection and normal bowel sounds; abdomen not distended Percussion/Palpation: abdomen soft; abdomen nontender, no guarding and abdomen not rigid Musculoskeletal: Head/Neck/Chest: normocephalic and head atraumatic Skin: no rashes, warm and dry Results & Data Vital Signs (Past 12 Hours) Vital Signs Temp Pulse Resp BP Pulse Ox O2 Del Method 04/26/24 07:19 36.5 C 85 16 102/69 96 Room Air 04/25/24 22:20 36.5 C 72 18 105/68 96 Room Air Diagnostic Findings EXAM: CT Abdomen and Pelvis With Intravenous Contrast INDICATION: Lower abdominal pain. Vomiting. TECHNIQUE: Axial computed tomography images of the abdomen and pelvis with intravenous contrast. Sagittal and coronal reformatted images were created and reviewed. This CT exam was performed using one or more of the following dose reduction techniques: automated exposure control, adjustment of the mA and/or kV according to patient size, and/or use of iterative reconstruction technique. CONTRAST: 93 ml of Optiray 320 was administered intravenously. COMPARISON: 10/29/2022 FINDINGS: Limitations: None. Lung bases: No abnormality noted. Pleural space: No visualized pleural effusion or pneumothorax. Heart: No abnormality noted. Mediastinum: Stable hiatal hernia. ABDOMEN: Liver: The liver is enlarged measuring 22.3 cm long. Hypodensity noted typical of fatty replacement. Smooth cortical contour. No mass or ductal dilation. Gallbladder and bile ducts: Cholecystectomy. No ductal dilation or stone noted. Pancreas: Homogeneous enhancement. No mass, inflammation or ductal dilation. Spleen: No significant abnormality noted. Adrenals: Stable solid 2.4 x 1.7 cm right adrenal nodule. Left appears normal. Kidneys and ureters: Normal enhancement. No mass, hydronephrosis or visualized stone. Stomach and bowel: Small bowel obstruction noted with a defined transition point in the midline of the upper pelvis series 5 image 204. Mild surrounding edema in the mesentery. Collapsed distal small bowel loops. There is some air and stool in the colon. PELVIS: Appendix: Well seen and appears normal. Bladder: No filling defects to suggest mass or large stone. No inflammation. Reproductive: Hysterectomy. ABDOMEN and PELVIS: Intraperitoneal space: No free air. No significant fluid collection. Bones/joints: No acute changes. Soft tissues: No significant abnormality noted. Vasculature: No abdominal aortic aneurysm. Lymph nodes: No pneumatosis few prominent normal size mesenteric nodes present. No pathologically enlarged nodes. IMPRESSION: Small bowel obstruction with distinct transition point in the midline mid pelvis. Consider adhesions.
[2024-04-26] MEDS ORDERED: Nursing to Pharmacy Communication SCH (10:30)
[2024-04-26] MEDS ORDERED: INSULIN ASPART PER UNIT CHARGE SC SCH (11:30)
--- NOTE | 2024-04-26 11:51 | Hospitalist Progress Note ---
Date of Service April 26, 2024 Assessment & Plan (1) Small bowel obstruction due to adhesions: (2) Metabolic acidosis: (3) Type 2 diabetes mellitus: (4) Irritable bowel syndrome (IBS): (5) Hypertension: Plan Patient presents to the emergency room with persistent small bowel obstruction most likely due to adhesions that did not respond to conservative treatment at home. Small bowel obstruction/Ileus H/O cholecystectomy, hysterectomy, irritable bowel syndrome --CT ABD:Small bowel obstruction with distinct transition point in the midline mid pelvis. Consider adhesions. Continue IV fluids Pain control as needed Advance diet as tolerated Appreciate surgery input Plan to discharge home if tolerates diet today DM II: Hold p.o. meds Continue insulin while hospitalized Monitor BGs Other chronic conditions: Mood disorder Gout Migraine HTN Continue home medications as able DVT Px: SCDs for now Code Status Full Code Admission and Anticipated Discharge Date Admission Date: April 25, 2024 Subjective Patient is seen and examined at bedside Had bowel movements overnight No nausea, vomiting, chest pain, dyspnea today Discussed with patient's family at bedside Reports headache Plan to discharge home if tolerates diet today Review of Systems Review of Systems: All systems reviewed & are unremarkable except as noted in Subjective Physical Exam Physical Exam: Physical Exam: Vitals signs as noted above General Appearance:Obese, no apparent distress Head: normocephalic, Atraumatic Eyes: normal inspection, EOMI Neck: supple, Trachea midline Respiratory/Chest: Decreased breath sounds, CTA, No accessory muscle use Cardiovascular: S1, S2, No murmur Abdomen/GI:Soft, Non tender, Bowel sounds present Extremities/Musculoskeletal:normal inspection, no edema Neurologic/Psych:AAOX3, grossly no focal neurological deficits Skin: normal color, warm Results & Data Results & Data Vital Signs (Past 12 Hours) Vital Signs Temp Pulse Resp BP Pulse Ox O2 Del Method 04/26/24 07:19 36.5 C 85 16 102/69 96 Room Air Laboratory Results Short CBC 04/26/24 Range/Units 05:29 WBC 5.46 (4.8-10.8) K/ul Hgb 13.2 (12.0-16.0) g/dl Hct 39.9 (37.0-47.0) % Plt Count 257 (130-400) K/uL BMP 04/25/24 04/26/24 11:00 05:29 Sodium 137 140 Potassium 4.4 3.6 Chloride 101 107 Carbon Dioxide 20 L 25 BUN 15 10 Creatinine 0.92 0.70 Glucose 103 H 99 Calcium 10.3 9.0 Liver Function 04/25/24 Range/Units 11:00 Total Bilirubin 0.6 (0.2-1.0) mg/dl AST 23 (13-39) U/L ALT 25 (7-52) U/L Alkaline Phosphatase 81 (34-104) U/L Albumin 4.9 (3.4-5.0) gm/dl Urine 04/25/24 Range/Units Unknown Urine Color Yellow Urine Appearance Clear (Clear) Urine pH 5.0 (4.5-7.5) Ur Specific [place] > 1.045 H (1.000-1.030) Urine Protein Negative (Negative) Urine Glucose (UA) Negative (Negative) (3) Type 2 diabetes mellitus 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
[2024-04-26] MEDS: PNEUMOCOCCAL VACCINE (PCV20) 20-VAL CONJ-DIP CRM/PF 0.5 ML SYR IM ONE (11:52)
--- NOTE | 2024-04-26 12:04 | Discharge Summary ---
Date of Service April 26, 2024 Admission HPI Per Admitting Provider Patient is a 54-year-old female with previous history of hysterectomy and cholecystectomy and irritable bowel syndrome yesterday presented to an outside hospital in [place] with similar complaints. They diagnosed her with a small bowel obstruction there and recommended hospitalization, however the patient chose not to stay. Her symptoms persisted throughout the night. She continued to have nausea vomiting and presented [facility] emergency department for further evaluation. Evaluation in the ED again today confirmed small bowel obstruction. NG tube was placed in the emergency department. However the patient did not tolerate that for very long and insisted that it be removed. She was referred to our service after initially contacting surgery to medically manage her small bowel obstruction. Time my evaluation the patient was no longer vomiting her nausea had improved. Abdominal pain slightly improved. She denies any fever or chills. No cough or cold symptoms no chest pain or shortness of breath. Is not passing flatus or any bowel movement. is at the bedside and confirms history. Admission Exam Per Admitting Provider Constitutional: Alert, ill in appearance, nontoxic HEENT: Mucous membranes dry. Sclera clear Neck: Soft, no adenopathy Lungs: Clear to auscultation, decreased, no wheezes rales or rhonchi CV: S1-S2, regular Abdomen: Hyperactive, high-pitched bowel sounds, slightly distended, diffuse tenderness, no guarding rigidity or rebound Extremities: No significant edema Musculoskeletal: No significant joint tenderness Neuro: No focal deficits Psych: Cooperative, normal mood Principal Diagnosis Small bowel obstruction/ileus Discharge Data Allergies Allergy/AdvReac Type Severity Reaction Status Date / Time No Known Allergies Allergy Verified 04/25/24 14:59 Consultations 04/25/24 13:03 ED Decision to Admit Stat 04/25/24 15:36 Consult General Surgery Routine Procedures Performed Laboratory Results WBC 5.46 K/ul (4.8-10.8) 04/26/24 05:29 RBC 4.53 M/uL (4.20-5.40) 04/26/24 05:29 Hgb 13.2 g/dl (12.0-16.0) 04/26/24 05:29 Hct 39.9 % (37.0-47.0) 04/26/24 05:29 MCV 88.1 fL (80.0-100.0) 04/26/24 05:29 MCH 29.1 pg (25.0-34.0) 04/26/24 05:29 MCHC 33.1 g/dL (32.0-36.0) 04/26/24 05:29 RDW Std Deviation 44.1 fL (36.4-46.3) 04/26/24 05:29 RDW Coeff of Zoey 13.5 % (11.5-14.5) 04/26/24 05:29 Plt Count 257 K/uL (130-400) 04/26/24 05:29 MPV 9.9 fL (9.4-12.4) 04/26/24 05:29 Immature Gran % (Auto) 0.5 % 04/25/24 11:11 Neut % (Auto) 77.4 % 04/25/24 11:11 Lymph % (Auto) 15.6 % 04/25/24 11:11 Atlantic % (Auto) 5.7 % 04/25/24 11:11 Eos % (Auto) 0.5 % 04/25/24 11:11 Baso % (Auto) 0.3 % 04/25/24 11:11 Neut # (Auto) 7.31 K/uL (1.40-6.50) H 04/25/24 11:11 Lymph # (Auto) 1.47 K/uL (1.20-3.40) 04/25/24 11:11 Atlantic # (Auto) 0.54 K/uL (0.11-0.59) 04/25/24 11:11 Eos # (Auto) 0.05 K/uL (0.00-0.50) 04/25/24 11:11 Baso # (Auto) 0.03 K/uL (0.00-0.20) 04/25/24 11:11 Immature Gran # (Auto) 0.05 K/uL (0.01-0.20) 04/25/24 11:11 Sodium 140 mmol/L (136-145) 04/26/24 05:29 Potassium 3.6 mmol/L (3.5-5.1) 04/26/24 05:29 Chloride 107 mmol/L (98-107) 04/26/24 05:29 Carbon Dioxide 25 mmol/L (21-32) 04/26/24 05:29 Anion Gap 8 (3-11) 04/26/24 05:29 BUN 10 mg/dl (6-23) 04/26/24 05:29 Creatinine 0.70 mg/dl (0.6-1.2) 04/26/24 05:29 Est Cr Clr Drug Dosing 102.9 ml/min 04/26/24 05:29 eGFR 103.35 04/26/24 05:29 BUN/Creatinine Ratio 14.3 (10-20) 04/26/24 05:29 Glucose 99 mg/dl (70-99(Fasting)) 04/26/24 05:29 POC Glucose 136 mg/dl (70-99) H 04/26/24 11:27 Lactate 2.3 mmol/L (0.4-2.0) H* 04/25/24 13:20 Calcium 9.0 mg/dl (8.6-10.3) 04/26/24 05:29 Phosphorus 3.5 mg/dl (2.5-4.9) 04/26/24 05:29 Magnesium 1.7 mg/dl (1.7-2.4) 04/26/24 05:29 Total Bilirubin 0.6 mg/dl (0.2-1.0) 04/25/24 11:00 AST 23 U/L (13-39) 04/25/24 11:00 ALT 25 U/L (7-52) 04/25/24 11:00 Alkaline Phosphatase 81 U/L (34-104) 04/25/24 11:00 Total Protein 8.3 gm/dl (6.0-8.3) 04/25/24 11:00 Albumin 4.9 gm/dl (3.4-5.0) 04/25/24 11:00 Globulin 3.4 gm/dl (2.5-4.0) 04/25/24 11:00 Albumin/Globulin Ratio 1.4 (0.9-2) 04/25/24 11:00 Lipase 36 U/L (11-82) 04/25/24 11:00 Urine Color Yellow 04/25/24 Unknown Urine Appearance Clear (Clear) 04/25/24 Unknown Urine pH 5.0 (4.5-7.5) 04/25/24 Unknown Ur Specific [place] > 1.045 (1.000-1.030) H 04/25/24 Unknown Urine Protein Negative (Negative) 04/25/24 Unknown Urine Glucose (UA) Negative (Negative) 04/25/24 Unknown Urine Ketones 1+ (Negative) H 04/25/24 Unknown Urine Blood Negative (Negative) 04/25/24 Unknown Urine Nitrite Negative (Negative) 04/25/24 Unknown Urine Bilirubin Negative (Negative) 04/25/24 Unknown Urine Urobilinogen Negative (Negative) 04/25/24 Unknown Ur Leukocyte Esterase Negative (Negative) 04/25/24 Unknown Impressions Abdomen/Pelvis CT 04/25/24 11:35 EXAM: CT Abdomen and Pelvis With Intravenous Contrast INDICATION: Lower abdominal pain. Vomiting. TECHNIQUE: Axial computed tomography images of the abdomen and pelvis with intravenous contrast. Sagittal and coronal reformatted images were created and reviewed. This CT exam was performed using one or more of the following dose reduction techniques: automated exposure control, adjustment of the mA and/or kV according to patient size, and/or use of iterative reconstruction technique. CONTRAST: 93 ml of Optiray 320 was administered intravenously. COMPARISON: 10/29/2022 FINDINGS: Limitations: None. Lung bases: No abnormality noted. Pleural space: No visualized pleural effusion or pneumothorax. Heart: No abnormality noted. Mediastinum: Stable hiatal hernia. ABDOMEN: Liver: The liver is enlarged measuring 22.3 cm long. Hypodensity noted typical of fatty replacement. Smooth cortical contour. No mass or ductal dilation. Gallbladder and bile ducts: Cholecystectomy. No ductal dilation or stone noted. Pancreas: Homogeneous enhancement. No mass, inflammation or ductal dilation. Spleen: No significant abnormality noted. Adrenals: Stable solid 2.4 x 1.7 cm right adrenal nodule. Left appears normal. Kidneys and ureters: Normal enhancement. No mass, hydronephrosis or visualized stone. Stomach and bowel: Small bowel obstruction noted with a defined transition point in the midline of the upper pelvis series 5 image 204. Mild surrounding edema in the mesentery. Collapsed distal small bowel loops. There is some air and stool in the colon. PELVIS: Appendix: Well seen and appears normal. Bladder: No filling defects to suggest mass or large stone. No inflammation. Reproductive: Hysterectomy. ABDOMEN and PELVIS: Intraperitoneal space: No free air. No significant fluid collection. Bones/joints: No acute changes. Soft tissues: No significant abnormality noted. Vasculature: No abdominal aortic aneurysm. Lymph nodes: No pneumatosis few prominent normal size mesenteric nodes present. No pathologically enlarged nodes. IMPRESSION: Small bowel obstruction with distinct transition point in the midline mid pelvis. Consider adhesions. ACT 112: Negative or not required by law. Electronically signed by Nhung Garcia 04-25-2024 12:39 PM KUB X-Ray 04/26/24 08:00 EXAM: Radiograph of the Abdomen 1 View INDICATION: Small Bowel obstruction. TECHNIQUE: Frontal supine view of the abdomen/pelvis. COMPARISON: 04/25/2024 FINDINGS: Limitations: None. Gastrointestinal tract: There is significantly improved small bowel distention. There is a minimally dilated small bowel loop in the right lower quadrant. There is more air throughout the colon to the rectum. No colonic distention. Organs: Visualized organ shadows appear grossly normal. Bones/joints: No fracture, erosion or dislocation. Soft tissues: No abnormality noted. No radiopaque foreign body noted. IMPRESSION: Significantly improved small bowel obstruction. ACT 112: Negative or not required by law. Electronically signed by Nhung Garcia 04-26-2024 09:19 AM Ordered Studies 04/25/24 11:35 CT abd pelvis IV con only Stat Hospital Course (1) Small bowel obstruction due to adhesions: (2) Metabolic acidosis: (3) Type 2 diabetes mellitus: (4) Irritable bowel syndrome (IBS): (5) Hypertension: Plan Patient presents to the emergency room with persistent small bowel obstruction most likely due to adhesions that did not respond to conservative treatment at home. Small bowel obstruction/Ileus H/O cholecystectomy, hysterectomy, irritable bowel syndrome --CT ABD:Small bowel obstruction with distinct transition point in the midline mid pelvis. Consider adhesions. Continue IV fluids Pain control as needed Advance diet as tolerated Appreciate surgery input Plans to get hernia repair as outpatient Plan to discharge home if tolerates diet today DM II: Hold p.o. meds Continue insulin while hospitalized Monitor BGs Other chronic conditions: Mood disorder Gout Migraine HTN Continue home medications as able DVT Px: SCDs for now Code Status Full Code Total Time Total Time Spent Total Time Spent (In Minutes): 44 minutes Discharge Plan Discharge Items Patient Disposition: Home - Self-Care Reason For Visit: SBO Discharge Diagnosis: Small bowel obstruction/Ileus Condition on Discharge: Good Activity: Per Instructions section Exercise/Sports: Gradually increase as tolerated Non-emergency contact: Primary Care Provider and Surgeon Call non-emergency contact if: you have any medication questions, your symptoms worsen, your pain is concerning for you and you have a fever Follow-up/Referrals: Sheila Nieto CRNP [Primary Care Provider] - Diet: Carb Consistent or DM2 and Low Fiber Addtl Attending Provider Instructions: Follow-up with your primary care physician Sheila PERKINS in 1 week Follow-up with your surgeon as recommended Seek immediate medical attention if your symptoms reoccur or worsen Please take all medications as instructed on discharge list below. Please call if you have any questions or problems. You can reach a [facility] hospitalist on duty at [facility] 24 hours a day by calling [phone] Pending Studies at Discharge: No Stand-Alone Forms: My [facility] [employer] Smoking Cessation Medications and DC Order Prescriptions: Continued (DME) Dexcom G6 Sensor Device See Rx Instructions .ROUTE .MEDSUPPLY Qty: 9 1RF Rx Instructions: change sensor Q10D gabapentin 100 mg capsule 100 mg PO TID PRN (Reason: Pain) Qty: 90 2RF (DME) Dexcom G6 Transmitter Device See Rx Instructions .Route Qty: 1 3RF Rx Instructions: Change transmitter every 90 days Ozempic 2 mg/dose (8 mg/3 mL) pen injector 2 mg subcut Q7D Qty: 3 1RF ezetimibe 10 mg tablet 10 mg PO DAILY Qty: 90 3RF metformin 500 mg tablet 1,000 mg PO BID Qty: 180 1RF Linzess 145 mcg capsule 145 mcg PO DAILY omeprazole 40 mg capsule,delayed release(DR/EC) 40 mg PO QAM Rx Instructions: PER PT & SPOUSE "HAVING TROUBLE WITH DOCTOR/PHARMACY/INSURANCE WITH THIS MED". acetaminophen [Tylenol Extra Strength] 500 mg Tablet 1,000 mg PO Q6H PRN (Reason: headache/pain) Rx Instructions: Unable to verify OTC meds at this date/time. allopurinol 100 mg tablet 100 mg PO DAILY duloxetine 60 mg capsule,delayed release(DR/EC) 60 mg PO DAILY Ubrelvy 50 mg tablet 50 mg PO DAILY PRN (Reason: Migraine Headache) Rx Instructions: MAY REPEAT IN 2 HRS IF NEEDED. celecoxib 200 mg capsule 200 mg PO DAILY lisinopril 10 mg tablet 20 mg PO DAILY nortriptyline 25 mg capsule 25 mg PO HS hyoscyamine sulfate 0.125 mg tablet 0.125 mg PO TID Rx Instructions: PER EXT MED HX. Repatha SureClick 140 mg/mL pen injector 0 mg SUBCUT UD Rx Instructions: Unable to verify med at this date/time. Original Directions: 140mg subcut every 2 weeks montelukast 10 mg tablet 10 mg PO HS Discharge Orders: Discharge Order (Routine); Ordered 04/26/24 Ordered By: Jorge Patel Admission Data Admit Date/Time: 04/25/24 13:58 Attending Provider: Jorge Patel Admit Provider: Jamie Whatley Primary Care Provider: Sheila Nieto Other Providers: Jonathan Diamond; Jamie Whatley
[2024-04-26] MEDS ORDERED: D5W AND LACTATED RINGERS 1,000 ML IV SCH (15:40)
== END 2024-04-26 13:41 | disposition home or self-care (01) | DRG 389 ==
LOC: ED 10:23 → SUATTDRO 13:58 → 3N 13:58